=== PATIENT | female | born 1960 | race Caucasian/White ===

== ENCOUNTER → 2017-08-14 | Outpatient (CLI) | payer MEDICARE, OTHER ==
--- NOTE | 2017-08-14 17:03 | CT ---
EXAMINATION TYPE: CT chest w con DATE OF EXAM: 08/14/2017 COMPARISON: NONE HISTORY: Patient complains of chronic cough and "lung pain." CT DLP: 894.7 mGycm Automated exposure control for dose reduction was used. CONTRAST: CT scan of the chest is performed with IV Contrast, patient injected with 100 mL of Omnipaque 300. FINDINGS: The lungs are clear of infiltrate. There is no pleural effusion. There is small linear density at the right posterior lung base consistent with subsegmental atelectasis. Heart size is normal. There are no hilar masses. There is no mediastinal adenopathy. There is no evidence of aortic aneurysm or disse ction. There is some spurring in the thoracic spine. IMPRESSION: Minimal scarring or subsegmental atelectasis at the right lung base. Otherwise negative exam.
== END | disposition home or self-care (01) ==
LOC: RADCTMAIN 16:09
PROVIDERS: ATTEND Family Medicine
DX: R05 Cough (principal)
CPT/HCPCS: 71260; Q9967

== ENCOUNTER → 2017-08-29 | Outpatient (CLI) | payer MEDICARE, OTHER ==
--- NOTE | 2017-08-29 10:41 | FL ---
EXAMINATION TYPE: FL UGI air w small bowel DATE OF EXAM: 08/29/2017 COMPARISON: NONE HISTORY: Left-sided abdominal pain TECHNIQUE: A double contrast UGI study is performed with small bowel follow through utilizing 2 neelima tim and 32 seconds of fluoroscopy time with 59 images saved FINDINGS: Player Piano Technician image of the abdomen shows no gross abnormality. The esophagus shows normal motility and emptying into the stomach. Small hiatal hernia is present. No stricture is seen. The stomach shows normal distensibility, peristalsis, and mucosal folds. No evidence of any mass or ulcer disease. No significant gastroesophageal reflux was seen during real time performance of this study, however intraesophageal reflux was noted with delayed emptying into the stomach in the gravity independent portion of the examination without tertiary contractions. The duodenal bulb and sweep are unremarkable. The small bowel study shows normal transit to the colon in less than 30 minutes. There is normal muc osal fold pattern throughout the small bowel. There is no evidence of any stricture. The terminal il eum is unremarkable. IMPRESSION: 1. Small hiatal hernia. 2. Moderate intraesophageal reflux during the gravity independent portion of the examination as well as delayed propulsion in the supine position. 3. Rapid transit time through small bowel into the large bowel. 4. Evaluation for filling defect within the cecum is limited as stool is present.
== END | disposition home or self-care (01) ==
LOC: RADFLMAIN 08:18
PROVIDERS: ATTEND Family Medicine
DX: K44.9 Diaphragmatic hernia without obstruction or gangrene (principal); K21.9 Gastro-esophageal reflux disease without esophagitis; R13.10 Dysphagia, unspecified
CPT/HCPCS: 74249

== ENCOUNTER → 2017-12-16 | Outpatient (CLI) | payer MEDICARE, OTHER ==
[2017-12-16 14:57] VITALS: BP 153/74; PULSE 96; RESP 16; TEMP 97.7; BMI 63.0
--- NOTE | 2017-12-16 15:17 | P.HPBAR ---
Bariatric H&P - History & Physicial H&P Date: 12/16/17 History & Physicial: Visit/CC: Initial Vist Patient initial contact: Initial weight: 127.488 kg Initial weight in pounds: 281.00 Height: 4 ft 8 in Initial BMI: 63.0 Last weight: Current weight: 127.488 kg Current weight in pounds: 281.00 Current BMI: 63.0 [place] body weight (based on NIH guidelines): 36.287 kg Excess body weight loss: 0.0% The patient is a 57 year-old F who presents for Bariatric Assessment. The patient presents today for new patient consultation for sleeve gastrectomy. She 's had lifetime process morbid obesity. Her BMI 63. Patient developed severe comorbidities related to morbid obesity. She has a known hiatal hernia and significant GERD. 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 Patient will be scheduled see psychology for a bariatric review. She'll also see Dr. Hang Casiano for medical clearance. She' ll follow-up in one month. Bariatric Checklist Checklist: Plan: Checklist: EGD: 1. Hiatal hernia: 2. H. Pylori: HgbA1c: Vitamin D: Smoking: Never smoker Primary care physician referral: Psychiatry clearance: Cardiology clearance: Sleep study: Diet journal: VTE risk score: VTE risk level: Rehab needs at discharge:
[2017-12-16 15:50] LABS: HCT 45.3 % (34.0-46.0); HGB 15.1 gm/dL (11.4-16.0); MCH 31.6 pg (25.0-35.0); MCHC 33.2 g/dL (31.0-37.0); MCV 95.2 fL (80.0-100.0); Mean Platelet Volume 6.5; Platelet Count 263 k/uL (150-450); RBC 4.76 m/uL (3.80-5.40); RDW 12.6 % (11.5-15.5); WBC 8.6 k/uL (3.8-10.6)
[2017-12-16 16:07] LABS: ALT 55 U/L (9-52); AST 70 U/L (14-36); Albumin 4.2 g/dL (3.5-5.0); Alkaline Phosphatase 89 U/L (38-126); Anion Gap 5 mmol/L; Blood Urea Nitrogen 19 mg/dL (7-17); Calcium 9.6 mg/dL (8.4-10.2); Carbon Dioxide 30 mmol/L (22-30); Chloride 104 mmol/L (98-107); Cholesterol 154 mg/dL (<200); Glucose 82 mg/dL (74-99); HDL Cholesterol 45 mg/dL (40-60); LDL Cholesterol,Calculated 77 mg/dL (0-99); Potassium 4.6 mmol/L (3.5-5.1); Sodium 139 mmol/L (137-145); Total Bilirubin 0.3 mg/dL (0.2-1.3); Total Protein 7.2 g/dL (6.3-8.2); Triglycerides 161 mg/dL (<150)
[2017-12-16 19:52] LABS: Hemoglobin A1C 5.8 % (4.0-6.0)
[2017-12-17 01:14] LABS: Vitamin D 25 Hydroxy 54.2 ng/mL (30.0-100.0)
== END | disposition home or self-care (01) ==
LOC: BARWHC3 14:44
PROVIDERS: ATTEND Surgery
DX: E66.01 Morbid (severe) obesity due to excess calories (principal); G43.909 Migraine, unspecified, not intractable, without status migrainosus; K44.9 Diaphragmatic hernia without obstruction or gangrene; K21.9 Gastro-esophageal reflux disease without esophagitis; J45.909 Unspecified asthma, uncomplicated; J44.9 Chronic obstructive pulmonary disease, unspecified; E78.5 Hyperlipidemia, unspecified; M06.9 Rheumatoid arthritis, unspecified; E07.9 Disorder of thyroid, unspecified; G25.81 Restless legs syndrome; Z79.899 Other long term (current) drug therapy; Z68.44 Body mass index [BMI] 60.0-69.9, adult; Z90.710 Acquired absence of both cervix and uterus; Z98.890 Other specified postprocedural states
CPT/HCPCS: 80061; 80053; 82607; 84443; 85027; 82306; 83036; 93005; 36415; G0463; 99201

== ENCOUNTER → 2018-05-26 | Outpatient (CLI) | payer MEDICARE, OTHER ==
--- NOTE | 2018-05-26 11:45 | MR ---
MRI CERVICAL SPINE: CLINICAL HISTORY: Cervical cyst (N88.8 per order). Symptoms of headache per patient. TECHNIQUE: Multiplanar, multisequence imaging of the cervical spine is performed without and with IV contrast, 12.5 cc of gadolinium was given intravenously. COMPARISON: None. FINDINGS: Coronal images show levoconvex scoliosis centered near cervicothoracic junction. Motion art ifact degradation is seen making evaluation suboptimal. Sagittal images of the cervical spine show r low-lying cerebellar tonsils estimated 6 mm inferior descent into foramen magnum. The cervical and u pper thoracic spinal cord shows prominent cervical canal or syrinx beginning just below foramen magnu m extending into upper thoracic spine most prominent to superior T2 level with likely some additional is contiguous involvement below this. Some reversal of normal cervical curvature is seen on sagittal images. There is mild to moderate disc space narrowing C5-C6 level otherwise the vertebral body and intravertebral disk heights are normal. Mild multilevel anterior spurring mid cervical spine is prese nt. No suspicious enhancement is identified. Posterior disc herniation C5-C6 level as seen on sagitta l image 8. Axial images show syrinx beginning on axial image 45. Axial images at C2-C3 level otherwise are withi n normal limits. Axial images at C3-C4 level show broad-based posterior disc protrusion mildly effacing anterior theca l sac and causing mild left greater than right bilateral neural foraminal narrowing with some uncover tebral facet arthropathy present. Axial images at C4-C5 level are felt to appear within normal limits. Axial images at C5-C6 level show broad-based central disc protrusion effacing anterior thecal sac wit h uncovertebral facet degenerative changes causing moderate right-sided neural foraminal narrowing. L eft-sided neural foramen is patent. No significant change from prior. Axial images at C6-C7 and C7-T1 levels are felt to appear within normal limits. 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 There is associated lo ng segment syrinx. There is loss of normal cervical curvature with multilevel degenerative changes as detailed above.
== END | disposition home or self-care (01) ==
LOC: RADMRIMAIN 10:23
PROVIDERS: ATTEND Family Medicine
DX: M47.812 Spondylosis without myelopathy or radiculopathy, cervical region (principal); M43.8X2 Other specified deforming dorsopathies, cervical region
CPT/HCPCS: 72156; A9581

== ENCOUNTER → 2018-06-27 | Outpatient (CLI) | payer MEDICARE, OTHER ==
--- NOTE | 2018-06-27 10:58 | US ---
EXAMINATION TYPE: US venous doppler duplex LE LT DATE OF EXAM: 06/27/2018 10:42 AM COMPARISON: NONE CLINICAL HISTORY: R22.42 SWELLING OF LOWER LIMB. SIDE PERFORMED: Left TECHNIQUE: The lower extremity deep venous system is examined utilizing real time linear array sonog carla with graded compression, doppler sonography and color-flow sonography. FINDINGS: VESSELS IMAGED: External Iliac Vein (EIV) Common Femoral Vein Deep Femoral Vein Greater Saphenous Vein * Femoral Vein Popliteal Vein Proximal Calf Veins (* superficial vessels) Housing Inspector notes: Limited exam due to patient body habitus and edema. Left Leg: Negative for DVT IMPRESSION: Some technical limitations due to body habitus and edema. No evidence for DVT within the left lower e xtremity imaged from the groin to the upper calf.
== END | disposition home or self-care (01) ==
LOC: RADUSWWP 10:13
PROVIDERS: ATTEND Family Medicine
DX: R60.0 Localized edema (principal)

== ENCOUNTER → 2018-07-17 | Outpatient (CLI) | payer MEDICARE, OTHER ==
--- NOTE | 2018-07-17 12:41 | CT ---
EXAMINATION TYPE: CT chest w con DATE OF EXAM: 07/17/2018 COMPARISON: 08/14/2017 HISTORY: 58-year-old female dyspnea, CHF and trouble breathing TECHNIQUE: Contiguous axial scanning of the chest after the administration of 100 mL of Isovue 300. Coronal/sagittal reconstructions performed. CT DLP: 772mGycm. Automatic exposure control utilized for a dose reduction. FINDINGS: Some benign-appearing round calcifications anterior left breast likely oil cysts. Heart is upper limits of normal in size. No pericardial effusion. Aorta normal caliber with conventional branching anatomy. Normal caliber to the main right and left pulmonary arteries. No consolidation or pleural effusion. Patient is of very large body habitus Tiny hiatal hernia noted. Visualized upper abdomen shows no gross abnormality. Bones: Mild endplate spondylosis lower thoracic spine. IMPRESSION: 1. Normal heart size. No specific findings of CHF. 2. Large body habitus; consider possibility of secondary restrictive pulmonary function. 3. Tiny hiatal hernia.
--- NOTE | 2018-07-18 08:57 | ECHOF ---
Referral Reason:R06.0 Dyspnea, I50.30 Congestive heart failure MEASUREMENTS -------- HEIGHT: 137.2 cm WEIGHT: 128.8 kg BP: RVIDd: 2.5 cm (< 3.3) IVSd: 1.2 cm (0.6 - 1.1) LVIDd: 4.5 cm (3.9 - 5.3) LVPWd: 0.7 cm (0.6 - 1.1) IVSs: 1.4 cm LVIDs: 4.0 cm LVPWs: 0.9 cm LA Diam: 3.5 cm (2.7 - 3.8) Ao Diam: 3.4 cm (2.0 - 3.7) AV Cusp: 1.8 cm (1.5 - 2.6) LA Diam: 4.1 cm (2.7 - 3.8) MV EXCURSION: 14.230 mm (> 18.000) MV EF SLOPE: 70 mm/s (70 - 150) EPSS: 0.7 cm MV E Stefan: 0.64 m/s MV DecT: 239 ms MV A Stefan: 0.70 m/s MV E/A Ratio: 0.92 RAP: 5.00 mmHg RVSP: 10.49 mmHg FINDINGS -------- Sinus rhythm. This was a technically difficult study with suboptimal views. Morbid Obesity The left ventricular size is normal. There is mild concentric left ventricular hypertrophy. Overa ll left ventricular systolic function is normal with, an EF between 55 - 60 %. The right ventricle is normal in size. The left atrial size is normal. The right atrial size is normal. The aortic valve was not well visualized. There is trace mitral regurgitation. The tricuspid valve was not well visualized. Mild tricuspid regurgitation present. There is no ev idence of pulmonary hypertension. The right ventricular systolic pressure, as measured by Doppler, is 10.49mmHg. The pulmonic valve was not well visualized. The aortic root size is normal. There is a trivial pericardial effusion present. CONCLUSIONS -------- 1. Sinus rhythm. 2. This was a technically difficult study with suboptimal views. 3. Morbid Obesity 4. The left ventricular size is normal. 5. There is mild concentric left ventricular hypertrophy. 6. Overall left ventricular systolic function is normal with, an EF between 55 - 60 %. 7. The left atrial size is normal. 8. The aortic valve was not well visualized. 9. There is trace mitral regurgitation. 10. The tricuspid valve was not well visualized. 11. Mild tricuspid regurgitation present. 12. There is no evidence of pulmonary hypertension. 13. The pulmonic valve was not well visualized. 14. The aortic root size is normal. 15. There is a trivial pericardial effusion present. ROCK CLIMBING INSTRUCTOR: Savannah Barksdale RDCS
== END | disposition home or self-care (01) ==
LOC: RADCTMAIN 11:36
PROVIDERS: ATTEND Family Medicine
DX: I07.1 Rheumatic tricuspid insufficiency (principal); R06.00 Dyspnea, unspecified; E66.01 Morbid (severe) obesity due to excess calories
CPT/HCPCS: 93306; 71260; Q9967

== ENCOUNTER 2018-10-22 07:18 | Emergency (ER) | payer MEDICARE, OTHER ==
[2018-10-22] MEDS ORDERED: SODIUM CHLORIDE 0.9% 500 ML 500 ML IV ONE (07:34)
--- NOTE | 2018-10-22 07:37 | ED ---
General Adult HPI - General Chief complaint: Headache Stated complaint: HYPERGLYCEMIA Time Seen by Provider: 10/22/18 07:28 Source: patient, RN notes reviewed, old records reviewed Mode of arrival: EMS Limitations: no limitations - History of Present Illness Initial comments: 58-year-old female presents with chief complaint of elevated blood sugar. Patient states on her glucometer at home she had a blood sugar of 300. She is recently diagnosed with type 2 diabetes. She has been prescribed a medication by her primary care physician but is uncertain what this medication is and has not yet taken it. She was transported by EMS and EMS reported blood sugar 1: 15. Patient has only other complaint is some mild lightheadedness. Denies chest pain or dyspnea. Denies abdominal pain. Denies nausea vomiting or diarrhea. Denies fever or chills. She has been eating and drinking normally. - Related Data Home Medications Medication Instructions Recorded Confirmed Albuterol Inhaler [Ventolin 1 - 2 puff INHALATION RT-Q6H PRN 06/04/15 10/22/18 Inhaler] Budesonide-Formot 160-4.5 Mcg 2 puff INHALATION RT-BID 06/04/15 10/22/18 [Symbicort 160-4.5 Mcg Inhaler] Levothyroxine Sodium [Levoxyl] 100 mcg PO DAILY 06/04/15 10/22/18 Loratadine [Claritin] 10 mg PO DAILY 06/04/15 10/22/18 Mirtazapine [Remeron] 15 mg PO HS 06/04/15 10/22/18 Montelukast Sodium [Singulair] 10 mg PO HS 06/04/15 10/22/18 Nystatin [Nystop] 1 applic TOPICAL BID 06/04/15 10/22/18 PARoxetine HCL [Paxil] 20 mg PO DAILY 06/04/15 10/22/18 Potassium Chloride ER [K-Dur 10] 10 meq PO DAILY 06/04/15 10/22/18 Terbutaline Sulfate 2.5 mg PO TID 06/04/15 10/22/18 Topiramate [Topamax] 50 mg PO HS 06/04/15 10/22/18 rOPINIRole HCL [Requip] 1 mg PO HS 06/04/15 10/22/18 Atenolol [Tenormin] 25 mg PO DAILY 10/23/17 10/22/18 Omeprazole 40 mg PO DAILY 10/23/17 10/22/18 amLODIPine BESYLATE [Norvasc] 5 mg PO DAILY 10/23/17 10/22/18 Cholecalciferol (Vitamin D3) 2,000 unit PO DAILY 10/22/18 10/22/18 [Vitamin D3] Docusate [Colace] 100 mg PO BID 10/22/18 10/22/18 Furosemide [Lasix] 20 mg PO DAILY 10/22/18 10/22/18 Gabapentin [Neurontin] 300 mg PO BID 10/22/18 10/22/18 Rosuvastatin [Crestor] 10 mg PO HS 10/22/18 10/22/18 buPROPion HCL [Wellbutrin SR] 150 mg PO BID 10/22/18 10/22/18 busPIRone HCl [Buspar] 10 mg PO DAILY 10/22/18 10/22/18 hydrALAZINE HCL [Apresoline] 50 mg PO BID 10/22/18 10/22/18 Allergies Allergy/AdvReac Type Severity Reaction Status Date / Time Penicillins Allergy Rash/Hives Verified 10/22/18 08:09 Review of Systems ROS Statement: Those systems with pertinent positive or pertinent negative responses have been documented in the HPI. ROS Other: All systems not noted in ROS Statement are negative. 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 Absent: tenderness, meningismus Respiratory exam: Present: normal lung sounds bilaterally. Absent: respiratory distress Cardiovascular Exam: Present: regular rate, normal rhythm GI/Abdominal exam: Present: soft. Absent: distended, tenderness Extremities exam: Present: normal inspection, full ROM Neurological exam: Present: alert, oriented X3, CN II-XII intact. Absent: motor sensory deficit Psychiatric exam: Present: normal affect, normal mood Skin exam: Present: warm, dry, intact. Absent: cyanosis, diaphoretic Course Vital Signs 10/22/18 10/22/18 10/22/18 07:24 07:25 08:00 Temperature 97.9 F Pulse Rate 78 72 Respiratory 18 16 Rate Blood Pressure 132/67 132/67 O2 Sat by Pulse 96 97 97 Oximetry Medical Decision Making - Medical Decision Making 58-year-old female presenting with hypoglycemia. Blood sugar at home was 300. EMS reports normal blood sugar, glucometer the emergency department reads 95. Patient's blood work including CBC and CMP are obtained and are within normal limits including a blood sugar of 104. Patient will continue diabetic diet at home. She will follow-up with her primary care physician for reevaluation. She will also have glucometer check for accuracy at home. - Lab Data Result diagrams: 10/22/18 07:44 10/22/18 07:44 Lab Results 10/22/18 10/22/18 Range/Units 07:44 07:44 WBC 7.0 (3.8-10.6) k/uL RBC 4.78 (3.80-5.40) m/uL Hgb 14.6 (11.4-16.0) gm/dL Hct 45.2 (34.0-46.0) % MCV 94.5 (80.0-100.0) fL MCH 30.6 (25.0-35.0) pg MCHC 32.4 (31.0-37.0) g/dL RDW 13.6 (11.5-15.5) % Plt Count 280 (150-450) k/uL Neutrophils % 63 % Lymphocytes % 26 % Monocytes % 5 % Eosinophils % 3 % Basophils % 1 % Neutrophils # 4.4 (1.3-7.7) k/uL Lymphocytes # 1.8 (1.0-4.8) k/uL Monocytes # 0.4 (0-1.0) k/uL Eosinophils # 0.2 (0-0.7) k/uL Basophils # 0.1 (0-0.2) k/uL Sodium 144 (137-145) mmol/L Potassium 4.6 (3.5-5.1) mmol/L Chloride 106 (98-107) mmol/L Carbon Dioxide 30 (22-30) mmol/L Anion Gap 8 mmol/L BUN 20 H (7-17) mg/dL Creatinine 0.84 (0.52-1.04) mg/dL Est GFR (CKD-EPI)AfAm 89 (>60 ml/min/1.73 sqM) Est GFR (CKD-EPI)NonAf 77 (>60 ml/min/1.73 sqM) Glucose 104 H (74-99) mg/dL Calcium 8.8 (8.4-10.2) mg/dL Total Bilirubin 0.4 (0.2-1.3) mg/dL AST 36 (14-36) U/L ALT 36 (9-52) U/L Alkaline Phosphatase 101 (38-126) U/L Total Protein 7.2 (6.3-8.2) g/dL Albumin 4.0 (3.5-5.0) g/dL Disposition Clinical Impression: Hyperglycemia Disposition: HOME SELF-CARE Condition: Good Instructions: Type 2 Diabetes in the Older Adult (ED) Is patient prescribed a controlled substance at d/c from ED?: No Referrals: Hang Young MD [Primary Care Provider] - 1-2 days
[2018-10-22 08:35] LABS: Basophils # (A) 0.1 k/uL (0-0.2); Basophils % (A) 1 %; Eosinophils # (A) 0.2 k/uL (0-0.7); Eosinophils % (A) 3 %; HCT 45.2 % (34.0-46.0); HGB 14.6 gm/dL (11.4-16.0); Lymphocytes # (A) 1.8 k/uL (1.0-4.8); Lymphocytes % (A) 26 %; MCH 30.6 pg (25.0-35.0); MCHC 32.4 g/dL (31.0-37.0); MCV 94.5 fL (80.0-100.0); Mean Platelet Volume 6.5; Monocytes # (A) 0.4 k/uL (0-1.0); Monocytes % (A) 5 %; Neutrophils # (A) 4.4 k/uL (1.3-7.7); Neutrophils % (A) 63 %; Platelet Count 280 k/uL (150-450); RBC 4.78 m/uL (3.80-5.40); RDW 13.6 % (11.5-15.5)
[2018-10-22 08:45] LABS: Calcium 8.8 mg/dL (8.4-10.2); Potassium 4.6 mmol/L (3.5-5.1); Total Bilirubin 0.4 mg/dL (0.2-1.3); Total Protein 7.2 g/dL (6.3-8.2)
[2018-10-22 09:07] VITALS: BP 133/75; PULSE 75; RESP 19; TEMP 97.7
[2018-10-22 09:22] LABS: Glucose,Whole Blood 95 mg/dL (75-99)
== END 2018-10-22 09:04 | disposition home or self-care (01) ==
LOC: EC 07:18
DX: E11.65 Type 2 diabetes mellitus with hyperglycemia (principal); J44.9 Chronic obstructive pulmonary disease, unspecified; E78.5 Hyperlipidemia, unspecified; I10 Essential (primary) hypertension; M06.9 Rheumatoid arthritis, unspecified; E03.9 Hypothyroidism, unspecified; G25.81 Restless legs syndrome; F32.9 Major depressive disorder, single episode, unspecified; F41.9 Anxiety disorder, unspecified; Z96.653 Presence of artificial knee joint, bilateral; Z79.51 Long term (current) use of inhaled steroids; Z79.899 Other long term (current) drug therapy; Z88.0 Allergy status to penicillin
CPT/HCPCS: 36415; 80053; 85025; 96360; 99285

== ENCOUNTER → 2018-10-28 | Outpatient (CLI) | payer MEDICARE, OTHER ==
--- NOTE | 2018-10-30 10:48 | MM ---
Reason for exam: screening (asymptomatic). Last mammogram was performed 3 years and 4 months ago. History: Patient is postmenopausal and is nulliparous. Physical Findings: A clinical breast exam by your physician is recommended on an annual basis and results should be correlated with mammographic findings. MG 3D Screening Mammo W/Cad Bilateral CC and MLO view(s) were taken. Prior study comparison: June 30, 2015, bilateral MG screening mammo w CAD. March 18, 2013, bilateral digital screening mammo w/CAD. There are scattered fibroglandular densities. Benign calcifications in the left breast. No suspicious abnormality. No significant changes when compared with prior studies. ASSESSMENT: Benign, BI-RAD 2 RECOMMENDATION: Routine screening mammogram of both breasts in 1 year.
== END | disposition home or self-care (01) ==
LOC: RADMAMWWP 07:33
PROVIDERS: ATTEND Family Medicine
DX: Z12.31 Encounter for screening mammogram for malignant neoplasm of breast (principal)
CPT/HCPCS: 77063; 77067

== ENCOUNTER → 2019-05-27 | Outpatient (CLI) | payer MEDICARE, OTHER ==
[~2019-05-27] MED LIST: REGADENOSON 0.4 MG/5 ML SYRINGE IV ONE
--- NOTE | 2019-05-27 10:32 | P.STRESS ---
- Stress Test Note Stress Test Results/Findings: Exam Performed: NM stress lexiscan cardiolite Exam Date: 05/27/19 Reason for Exam: CHF Height: 4 ft 8 in Weight: 118.388 kg Protocol: LEXISCAN CARDIOLITE Stage: N/A Duration of Exercise: 5:00 Resting Heart Rate: 69 Resting Blood Pressure: 109/53 Maximum Achieved Heart Rate: 87 Maximum Achieved Blood Pressure: 109/53 85% PMHR: 137 100% PMHR: 161 METS: N/A Technologist Comment: Stress Test Results/Findings: This is a 59-year-old female with history of hypertension, diabetes, hypercholesterolemia and family history of ischemic heart disease being evaluated for cardiac status and symptoms of shortness of breath. Stress data: Baseline EKG showed sinus rhythm with normal TX interval, QRS d uration. Blood pressure at rest is 109/53 with pulse rate of 69. History and also Lexiscan was infused EKGs taken during and after exercise did not reveal any significant changes to suggest ischemia. New Final impression: #1. Negative Lexiscan stress test #2. Report on the nuclear images to be given by the radiologist
--- NOTE | 2019-05-27 10:55 | NM ---
EXAMINATION TYPE: NM stress lexiscan cardiolite DATE OF EXAM: 05/27/2019 COMPARISON: NONE HISTORY: History of hypertension, diabetes, asthma, and hypercholesterolemia presents with CHF per or yovani. TECHNIQUE: After the intravenous administration of 10.36 mCi Tc 99m Sestamibi - Cardiolite resting S PECT images acquired 45 minutes post injection. The patient received 0.4mg Lexiscan, 24.9 mCi Tc 99m Sestamibi - Stress images obtained [address] injection FINDINGS: Review of stress and rest SPECT images demonstrates some diminished color intensity on stress versus rest images involving the lateral left ventricular wall seen best on short axis views and which acute ischemia cannot be excluded. Gated analysis shows satisfactory wall motion with an estimated left v entricular ejection fraction of 53 %. IMPRESSION: Cannot exclude some acute ischemia lateral segment left ventricular wall. Need to further investigate by direct catheter angiogram should be based on clinical and EKG correlation.
--- NOTE | 2019-05-28 13:26 | EST ---
Stress Test Results/Findings: Exam Performed: NM stress lexiscan cardiolite Exam Date: 05/27/19 Reason for Exam: CHF Height: 4 ft 8 in Weight: 118.388 kg Protocol: LEXISCAN CARDIOLITE Stage: N/A Duration of Exercise: 5:00 Resting Heart Rate: 69 Resting Blood Pressure: 109/53 Maximum Achieved Heart Rate: 87 Maximum Achieved Blood Pressure: 109/53 85% PMHR: 137 100% PMHR: 161 METS: N/A Technologist Comment: Stress Test Results/Findings: This is a 59-year-old female with history of hypertension, diabetes, hypercholesterolemia and family history of ischemic heart disease being evaluated for cardiac status and symptoms of shortness of breath. Stress data: Baseline EKG showed sinus rhythm with normal PA interval, QRS duration. Blood pressure at rest is 109/53 with pulse rate of 69. History and also Lexiscan was infused EKGs taken during and after exercise did not reveal any significant changes to suggest ischemia. New Final impression: #1. Negative Lexiscan stress test #2. Report on the nuclear images to be given by the radiologist NATI
== END | disposition home or self-care (01) ==
LOC: RADNMMAIN 07:00
PROVIDERS: ATTEND Family Medicine
DX: I50.30 Unspecified diastolic (congestive) heart failure (principal); I50.84 End stage heart failure
CPT/HCPCS: 93017; 78452; A9500; J2785

== ENCOUNTER → 2019-06-25 | Outpatient (CLI) | payer MEDICARE, OTHER ==
--- NOTE | 2019-06-26 09:59 | ECHOF ---
Referral Reason:I50.30 CHF MEASUREMENTS -------- HEIGHT: 147.3 cm WEIGHT: 118.4 kg BP: RVIDd: 1.7 cm (< 3.3) IVSd: 0.8 cm (0.6 - 1.1) LVIDd: 3.6 cm (3.9 - 5.3) LVPWd: 1.2 cm (0.6 - 1.1) IVSs: 1.4 cm LVIDs: 2.4 cm LVPWs: 1.5 cm Ao Diam: 2.8 cm (2.0 - 3.7) AV Cusp: 1.7 cm (1.5 - 2.6) LA Diam: 2.5 cm (2.7 - 3.8) MV E Stefan: 0.54 m/s MV DecT: 209 ms MV A Stefan: 0.45 m/s MV E/A Ratio: 1.19 RAP: 5.00 mmHg RVSP: 8.59 mmHg FINDINGS -------- Sinus rhythm. This was a technically difficult study with suboptimal views. Limited Study due to poor image quali ty. The left ventricular size is normal. There is mild concentric left ventricular hypertrophy. Overa ll left ventricular systolic function is normal with, an EF between 55 - 60 %. The RV was not well visualized. The left atrium was not well visualized. The right atrium was not well visualized. xx ml of Lumason was utilized for enhancement of images. The aortic valve was not well visualized. The mitral valve was not well visualized. The tricuspid valve was not well visualized. The pulmonic valve was not well visualized. CONCLUSIONS -------- 1. Sinus rhythm. 2. This was a technically difficult study with suboptimal views. 3. Limited Study due to poor image qulity. 4. The left ventricular size is normal. 5. There is mild concentric left ventricular hypertrophy. 6. Overall left ventricular systolic function is normal with, an EF between 55 - 60 %. 7. The RV was not well visualized. 8. The left atrium was not well visualized. 9. The right atrium was not well visualized. 10. xx ml of Lumason was utilized for enhancement of images. 11. The aortic valve was not well visualized. 12. The mitral valve was not well visualized. 13. The tricuspid valve was not well visualized. 14. The pulmonic valve was not well visualized. ACCOUNTANT: Neha Beatty RDCS
== END | disposition home or self-care (01) ==
LOC: RADECHMAIN 11:50
PROVIDERS: ATTEND Family Medicine
DX: I51.7 Cardiomegaly (principal); I50.30 Unspecified diastolic (congestive) heart failure
CPT/HCPCS: C8929; Q9950; 93306

== ENCOUNTER → 2019-08-11 | Outpatient (CLI) | payer MEDICARE, OTHER ==
--- NOTE | 2019-08-11 10:34 | MR ---
EXAMINATION TYPE: MR cervical spine wo/w con DATE OF EXAM: 08/11/2019 COMPARISON: 05/26/2018 HISTORY: Syrinx TECHNIQUE: Multiplanar, multisequence images of the cervical spine were acquired utilizing 11 mL intravenous Victor M avist contrast. Diffusion weighted imaging was performed. Exam limited by motion artifact. Findings suggest possible previous decompression surgery. Partially empty sella turcica noted. Low-ly ing cerebellar tonsils appears again noted. C2-C3: No disc herniation or canal stenosis. Neural foramina patent. C3-C4: Degenerative disc disease with posterior disc bulging which is stable. Uncovertebral joint hyp ertrophy seen. Neural foramina patent. No Canal stenosis. C4-C5: Uncovertebral joint hypertrophy. No foraminal encroachment or canal stenosis. No disc herniati on. Prominent anterior hypertrophic spurs are noted at this level. C5-C6: Degenerative disc disease with broad-based disc bulging and posterior spondylosis. Uncovertebr al joint hypertrophy noted with mild right-sided foraminal encroachment. No Canal stenosis. Prominent hypertrophic spurs are noted anteriorly at this level. C6-C7: Degenerative disc disease with no canal stenosis, focal herniation or foraminal encroachment. C7-T1: No evidence for degenerative disc disease. No disc bulge/herniation or protrusion. No Canal stenosis. Foramina are patent bilaterally. There is artifact near the occiput within the posterior soft tissue suggestive of previous surgery po ssible related to decompression surgery. Loss of the normal cervical lordosis noted. Abnormal signal seen within the spinal cord extends from the level of C1 throughout the visualized ce rvical and upper thoracic spinal cord appears stable relative to the prior exam. No pathologic enhanc ement. IMPRESSION: 1. Stable findings suggestive of a cervical spinal cord syrinx. 2. Postsurgical change involving the occiput suggestive of previous decompression surgery possibly fo r Chiari malformation correlate clinically. Cerebellar tonsils remain low-lying in position but stabl e. 3. Stable multilevel degenerative disc disease with most marked findings at C5-C6. Disc bulging C3-4 and C5-C6 is stable from prior exam with no canal stenosis.
== END ==
LOC: RADMRIMAIN 08:39
PROVIDERS: ATTEND Family Medicine
DX: M50.322 Other cervical disc degeneration at C5-C6 level (principal); M50.21 Other cervical disc displacement, high cervical region
CPT/HCPCS: 72156; A9585

== ENCOUNTER 2020-06-30 06:46 | Day surgery (SDC) | payer MEDICARE, OTHER ==
[2020-06-29 10:44] VITALS: BMI 56.0
[~2020-06-30 06:46] MED LIST changes: +LACTATED RINGERS 1,000 ML IV SCH; +ONDANSETRON 4 MG/2 ML VIAL IVP PRN; -REGADENOSON 0.4 MG/5 ML SYRINGE IV ONE
[2020-06-30 07:17] VITALS: RESP 16
[2020-06-30 07:38] VITALS: TEMP 97.1
[2020-06-30 07:40] LABS: Glucose,Whole Blood 91 mg/dL (75-99)
[2020-06-30] MEDS ORDERED: LIDOCAINE 1% INJ 10MG/ML (20 ML MDV) ONE (08:11)
[2020-06-30] MEDS ORDERED: PROPOFOL 10 MG/ML 20 ML VIAL IV ONE (08:11)
--- NOTE | 2020-06-30 08:13 | P.GSHP ---
History of Present Illness H&P Date: 06/30/20 Chief Complaint: GERD This a 6-year-old female presents today for EGD. She had issues with GERD. Past Medical History Past Medical History: Asthma, COPD, Diabetes Mellitus, GERD/Reflux, Hyperlipidemia, Hypertension, Osteoarthritis (OA), Rheumatoid Arthritis (RA), Sleep Apnea/CPAP/BIPAP, Thyroid Disorder Additional Past Medical History / Comment(s): hypothyroidism, restless leg syndrome, migraine headaches (Neurontin Rx prescribed for these) , HIATAL HERNIA, HAS SPOT SPOT IN BACK OF HEAD FROM PIECE OF SKULL BEING REMOVED. History of Any Multi-Drug Resistant Organisms: None Reported Past Surgical History: Adenoidectomy, Hysterectomy, Joint Replacement, Orthopedic Surgery, Tonsillectomy Additional Past Surgical History / Comment(s): bilateral eye surgery to correct lazy eyes, munira knee replacement, munira hand and Left leg surgery, COLONOSOPY, BACK OF SKULL REMOVED 2 YEARS AGO TO RELIEVE PRESSURE FROM CYST ON SPINAL CORD. Past Anesthesia/Blood Transfusion Reactions: No Reported Reaction Smoking Status: Never smoker - Past Family History Sister(s) Family Medical History: Deep Vein Thrombosis (DVT) Additional Family Medical History / Comment(s): SISTER HAD BLOOD CLOT IN LT ARM Medications and Allergies Home Medications Medication Instructions Recorded Confirmed Type Albuterol Inhaler (Mhu) [Ventolin 1 - 2 puff INHALATION RT-Q6H PRN 06/04/15 06/30/20 History Inhaler] Budesonide-Formot 160-4.5 Mcg 2 puff INHALATION RT-BID 06/04/15 06/30/20 History [Symbicort 160-4.5 Mcg Inhaler] Levothyroxine Sodium [Levoxyl] 100 mcg PO DAILY 06/04/15 06/30/20 History Loratadine [Claritin] 10 mg PO DAILY 06/04/15 06/30/20 History Mirtazapine [Remeron] 15 mg PO HS 06/04/15 06/30/20 History Montelukast Sodium [Singulair] 10 mg PO HS 06/04/15 06/30/20 History PARoxetine HCL [Paxil] 20 mg PO DAILY 06/04/15 06/30/20 History Potassium Chloride ER [K-Dur 10] 10 meq PO DAILY 06/04/15 06/30/20 History Topiramate [Topamax] 50 mg PO HS 06/04/15 06/30/20 History rOPINIRole HCL [Requip] 1 mg PO HS 06/04/15 06/30/20 History Omeprazole 40 mg PO DAILY 10/23/17 06/30/20 History amLODIPine BESYLATE [Norvasc] 5 mg PO DAILY 10/23/17 06/30/20 History atenoloL [Tenormin] 25 mg PO DAILY 10/23/17 06/30/20 History Cholecalciferol (Vitamin D3) 2,000 unit PO DAILY 10/22/18 06/30/20 History [Vitamin D3] Docusate [Colace] 100 mg PO BID 10/22/18 06/30/20 History Furosemide [Lasix] 20 mg PO DAILY 10/22/18 06/30/20 History Gabapentin [Neurontin] 300 mg PO BID 10/22/18 06/30/20 History Rosuvastatin [Crestor] 10 mg PO HS 10/22/18 06/30/20 History buPROPion HCL [Wellbutrin SR] 150 mg PO BID 10/22/18 06/30/20 History busPIRone HCl [Buspar] 10 mg PO DAILY 10/22/18 06/30/20 History hydrALAZINE HCL [Apresoline] 50 mg PO BID 10/22/18 06/30/20 History Dapagliflozin Propanediol [Farxiga] 5 mg PO DAILY 01/15/20 06/30/20 History Diclofenac Sodium [Voltaren] 50 mg PO TID 01/15/20 06/30/20 History Rizatriptan Benzoate [Rizatriptan] 10 mg PO DAILY PRN 01/15/20 06/30/20 History Semaglutide [Ozempic] 0.25 mg SQ TU 01/15/20 06/30/20 History Sucralfate [Carafate] 1 gm PO ACHS 06/29/20 06/30/20 History Allergies Allergy/AdvReac Type Severity Reaction Status Date / Time Penicillins Allergy Rash/Hives Verified 06/30/20 07:19 Surgical - Exam Vital Signs Pulse Resp BP Pulse Ox 84 16 123/62 95 06/30/20 07:15 06/30/20 07:15 06/30/20 07:15 06/30/20 07:15 - General well developed, well nourished, no distress - Eyes PERRL - ENT normal pinna - Neck no masses - Respiratory normal expansion - Cardiovascular Rhythm: regular - Abdomen Abdomen: soft, non tender Assessment and Plan Assessment: GERD. We'll perform EGD.
--- NOTE | 2020-06-30 08:23 | P.OP ---
Date of Procedure: 06/30/20 Preoperative Diagnosis: EGD Postoperative Diagnosis: Antral gastritis Procedure(s) Performed: EGD Anesthesia: MAC Surgeon: Kamar Lara Pathology: other (Antrum) Condition: stable Disposition: PACU Description of Procedure: The patient's placed on the endoscopy table in the lateral position. He receiv ed IV sedation. The gastroscope placed oropharynx and passed in the esophagus and stomach. Scope was then placed through the pylorus. The first and second portion of the duodenum appeared normal. Scope was then brought back the antrum this. Mildly inflamed. The scope was retroflexed and remainder of the stomach appeared normal. There was no significant hiatal hernia. The GE junction was at 440 cms. The distal esophagus appeared normal. The proximal esophagus appeared normal. Scope was withdrawn from patient.
[2020-06-30 09:36] VITALS: BP 129/81; PULSE 81
[2020-06-30 09:42] LABS: Glucose,Whole Blood 173 mg/dL (75-99)
== END 2020-06-30 10:15 | disposition home or self-care (01) ==
LOC: ORWHC2ENDO 06:46
PROVIDERS: ATTEND Surgery
DX: K29.50 Unspecified chronic gastritis without bleeding (principal); K21.9 Gastro-esophageal reflux disease without esophagitis; I10 Essential (primary) hypertension; J44.9 Chronic obstructive pulmonary disease, unspecified; E11.9 Type 2 diabetes mellitus without complications; E78.5 Hyperlipidemia, unspecified; M19.90 Unspecified osteoarthritis, unspecified site; M06.9 Rheumatoid arthritis, unspecified; G47.30 Sleep apnea, unspecified; E07.9 Disorder of thyroid, unspecified; E03.9 Hypothyroidism, unspecified; G25.81 Restless legs syndrome; G43.909 Migraine, unspecified, not intractable, without status migrainosus; Z88.0 Allergy status to penicillin; Z79.51 Long term (current) use of inhaled steroids; Z79.84 Long term (current) use of oral hypoglycemic drugs; Z79.1 Long term (current) use of non-steroidal anti-inflammatories (NSAID); Z79.890 Hormone replacement therapy; Z79.899 Other long term (current) drug therapy; Z96.653 Presence of artificial knee joint, bilateral; Z90.710 Acquired absence of both cervix and uterus; Z90.89 Acquired absence of other organs; Z98.890 Other specified postprocedural states; Z82.49 Family history of ischemic heart disease and other diseases of the circulatory system
CPT/HCPCS: 88305; 43239; J2001; J2704

== ENCOUNTER → 2021-04-11 | Outpatient (CLI) | payer MEDICARE, OTHER ==
[~2021-04-11] MED LIST changes: -LACTATED RINGERS 1,000 ML IV SCH; -ONDANSETRON 4 MG/2 ML VIAL IVP PRN; +REGADENOSON 0.4 MG/5 ML SYRINGE IV PRN
--- NOTE | 2021-04-11 11:14 | NM ---
EXAMINATION TYPE: NM stress lexiscan cardiolite DATE OF EXAM: 04/11/2021 COMPARISON: 05/27/2019 HISTORY: R07.2 precordial chest pain TECHNIQUE: After the intravenous administration of 9.5 mCi Tc 99m Sestamibi - Cardiolite resting SPE CT images acquired 45 minutes post injection. The patient received 0.4mg Lexiscan, 24.8 mCi Tc 99m Sestamibi - Stress images obtained [address] injection FINDINGS: Review of stress and rest SPECT images demonstrates small area of reversible decreased perfusion invo lving the lateral wall of the left ventricle may reflect stress-induced ischemia. Fixed decreased per fusion cardiac apex may reflect attenuation artifact. A remote insult. Gated analysis shows normal wa ll motion with an estimated left ventricular ejection fraction of 67 %. IMPRESSION: Stress-induced ischemia lateral wall of the left ventricle is difficult to exclude. Corre late clinically.
--- NOTE | 2021-04-11 18:58 | P.STRESS ---
- Stress Test Note Stress Test Results/Findings: Exam Performed: NM stress lexiscan cardiolite Exam Date: 04/11/21 Reason for Exam: CHEST PAIN Height: 4 ft 8 in Weight: 250 kg Protocol: LEXISCAN Stage: N/A Duration of Exercise: 5 MINUTES Resting Heart Rate: 74 Resting Blood Pressure: 118/67 Maximum Achieved Heart Rate: 93 Maximum Achieved Blood Pressure: 133/61 85% PMHR: 135 100% PMHR: 159 METS: N/A Technologist Comment: Stress Test Results/Findings: Baseline heart rate 74 beats a minute, Baseline blood pressure 118/67 mmHg Baseline twelve-lead EKG shows sinus rhythm with normal ST segments Patient received Lexiscan infusion per protocol No significant change in heart rate blood pressure No ECG abnormalities noted Nuclear Portion of the reported separately
== END | disposition home or self-care (01) ==
LOC: RADNMMAIN 07:37
PROVIDERS: ATTEND Family Medicine
DX: R07.2 Precordial pain (principal)
CPT/HCPCS: 93017; 78452; A9500; J2785

== ENCOUNTER → 2021-06-09 | Outpatient (CLI) | payer MEDICARE, OTHER ==
[2021-06-09 11:59] LABS: HGB 15.5 gm/dL (11.4-16.0); MCV 97.1 fL (80.0-100.0); Platelet Count 310 k/uL (150-450); RBC 4.84 m/uL (3.80-5.40); RDW 12.7 % (11.5-15.5); WBC 10.4 k/uL (3.8-10.6)
[2021-06-09 12:06] LABS: African American GFR (CKD) >90 (>60 ml/min/1.73 sqM); Anion Gap 10 mmol/L; Blood Urea Nitrogen 12 mg/dL (7-17); Carbon Dioxide 25 mmol/L (22-30); Chloride 108 mmol/L (98-107); Non-African American GFR(CKD) >90 (>60 ml/min/1.73 sqM); Potassium 4.6 mmol/L (3.5-5.1); Sodium 143 mmol/L (137-145)
== END | disposition home or self-care (01) ==
LOC: LABPAT 10:53
PROVIDERS: ATTEND Internal Medicine Interventional Cardiology
DX: Z01.812 Encounter for preprocedural laboratory examination (principal); R07.9 Chest pain, unspecified
CPT/HCPCS: 36415; 80051; 82565; 84520; 85027

== ENCOUNTER 2021-06-27 04:46 | Inpatient (IN) | payer MEDICARE, OTHER ==
[2021-06-27] MEDS ORDERED: methylPREDNISolone SOD SUCCI 125 MG/2 ML VIAL IV STA (04:52)
[2021-06-27] MEDS ORDERED: SODIUM CHLORIDE 0.9% 500 ML 500 ML IV STA (04:52)
[2021-06-27] MEDS ORDERED: SODIUM CHLORIDE 0.9% 1,000 ML IV STA (04:52)
[2021-06-27] MEDS ORDERED: IPRATROPIUM-ALBUTEROL 3 ML NEB INHALATION STA (04:52)
--- NOTE | 2021-06-27 05:01 | ED ---
SOB HPI - General Chief Complaint: Shortness of Breath Stated Complaint: PATRICK Time Seen by Provider: 06/27/21 04:52 Source: patient, EMS, RN notes reviewed, old records reviewed Limitations: no limitations - History of Present Illness MD Complaint: shortness of breath, cough, chest pain -: minutes(s) Severity: moderate Severity scale (1-10): 4 Quality: dull Consistency: intermittent Improves With: nothing Worsens With: nothing Context: recent URI, anxiety, recent illness Associated Symptoms: chest pain, cough, sputum production Treatments Prior to Arrival: none - Related Data Home Medications Medication Instructions Recorded Confirmed Albuterol Inhaler (Mhu) [Ventolin 1 - 2 puff INHALATION RT-Q6H PRN 06/04/15 06/09/21 Inhaler] Budesonide-Formot 160-4.5 Mcg 2 puff INHALATION RT-BID 06/04/15 06/09/21 [Symbicort 160-4.5 Mcg Inhaler] Levothyroxine Sodium [Levoxyl] 100 mcg PO DAILY 06/04/15 06/09/21 Loratadine [Claritin] 10 mg PO DAILY 06/04/15 06/09/21 Mirtazapine [Remeron] 15 mg PO HS 06/04/15 06/09/21 Montelukast Sodium [Singulair] 10 mg PO HS 06/04/15 06/09/21 PARoxetine HCL [Paxil] 20 mg PO DAILY 06/04/15 06/09/21 Potassium Chloride ER [K-Dur 10] 10 meq PO DAILY 06/04/15 06/09/21 Topiramate [Topamax] 50 mg PO HS 06/04/15 06/09/21 rOPINIRole HCL [Requip] 1 mg PO HS 06/04/15 06/09/21 Omeprazole 40 mg PO DAILY 10/23/17 06/09/21 amLODIPine BESYLATE [Norvasc] 5 mg PO DAILY 10/23/17 06/09/21 atenoloL [Tenormin] 25 mg PO DAILY 10/23/17 06/09/21 Cholecalciferol (Vitamin D3) 2,000 unit PO DAILY 10/22/18 06/09/21 [Vitamin D3] Docusate [Colace] 100 mg PO BID 10/22/18 06/09/21 Furosemide [Lasix] 20 mg PO DAILY 10/22/18 06/09/21 Gabapentin [Neurontin] 300 mg PO BID 10/22/18 06/09/21 Rosuvastatin [Crestor] 10 mg PO HS 10/22/18 06/09/21 buPROPion HCL [Wellbutrin SR] 150 mg PO BID 10/22/18 06/09/21 busPIRone HCl [Buspar] 10 mg PO DAILY 10/22/18 06/09/21 hydrALAZINE HCL [Apresoline] 50 mg PO BID 10/22/18 06/09/21 Dapagliflozin Propanediol [Farxiga] 5 mg PO DAILY 01/15/20 06/09/21 Diclofenac Sodium [Voltaren] 50 mg PO TID 01/15/20 06/09/21 Rizatriptan Benzoate [Rizatriptan] 10 mg PO DAILY PRN 01/15/20 06/09/21 Semaglutide [Ozempic] 0.25 mg SQ TU 01/15/20 06/09/21 Sucralfate [Carafate] 1 gm PO ACHS 06/29/20 06/09/21 Aspirin [Adult Low Dose Aspirin EC] 81 mg PO DAILY 06/09/21 06/09/21 Allergies Allergy/AdvReac Type Severity Reaction Status Date / Time Penicillins Allergy Rash/Hives Verified 06/09/21 09:24 Review of Systems ROS Statement: Those systems with pertinent positive or pertinent negative responses have been documented in the HPI. ROS Other: All systems not noted in ROS Statement are negative. Past Medical History Past Medical History: Asthma, COPD, Diabetes Mellitus, GERD/Reflux, Hyperlipidemia, Hypertension, Osteoarthritis (OA), Rheumatoid Arthritis (RA), Sleep Apnea/CPAP/BIPAP, Thyroid Disorder Additional Past Medical History / Comment(s): hypothyroidism, restless leg syndrome, migraine headaches (Neurontin Rx prescribed for these) , HIATAL HERNIA, HAS SPOT IN BACK OF HEAD FROM PIECE OF SKULL BEING REMOVED. 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 EGD Past Anesthesia/Blood Transfusion Reactions: No Reported Reaction Past Psychological History: Anxiety, Depression Smoking Status: Never smoker Past Alcohol Use History: None Reported Past Drug Use History: None Reported - Past Family History Sister(s) Family Medical History: Deep Vein Thrombosis (DVT) Additional Family Medical History / Comment(s): SISTER HAD BLOOD CLOT IN LT ARM General Exam Limitations: no limitations General appearance: alert, in no apparent distress, anxious Head exam: Present: atraumatic, normocephalic, normal inspection Eye exam: Present: normal appearance, PERRL, EOMI. Absent: scleral icterus, conjunctival injection, periorbital swelling ENT exam: Present: normal exam, mucous membranes dry Neck exam: Present: normal inspection. Absent: tenderness, meningismus, lymphadenopathy Respiratory exam: Present: respiratory distress, wheezes, decreased breath sounds, prolonged expiratory. Absent: rales, rhonchi, stridor Cardiovascular Exam: Present: regular rate, normal rhythm, normal heart sounds. Absent: systolic murmur, diastolic murmur, rubs, gallop, clicks GI/Abdominal exam: Present: soft, normal bowel sounds. Absent: distended, tenderness, guarding, rebound, rigid Extremities exam: Present: normal inspection, full ROM, normal capillary refill. Absent: tenderness, pedal edema, joint swelling, calf tenderness Back exam: Present: normal inspection Neurological exam: Present: alert, oriented X3, CN II-XII intact Psychiatric exam: Present: normal affect, normal mood Skin exam: Present: warm, dry, intact, normal color. Absent: rash Course Vital Signs 06/27/21 06/27/21 06/27/21 04:47 05:25 05:32 Temperature 97.9 F Pulse Rate 81 77 78 Respiratory 18 Rate Blood Pressure 150/72 O2 Sat by Pulse 99 Oximetry Medical Decision Making - Medical Decision Making 21 female not really improved her breathing here in the ER, will be admitted for COPD exacerbation - Lab Data Result diagrams: 06/27/21 05:07 06/27/21 05:07 Lab Results 06/27/21 06/27/21 06/27/21 Range/Units 05:07 05:07 05:07 WBC 8.7 (3.8-10.6) k/uL RBC 4.58 (3.80-5.40) m/uL Hgb 14.9 (11.4-16.0) gm/dL Hct 44.3 (34.0-46.0) % MCV 96.5 (80.0-100.0) fL MCH 32.5 (25.0-35.0) pg MCHC 33.7 (31.0-37.0) g/dL RDW 13.5 (11.5-15.5) % Plt Count 276 (150-450) k/uL MPV 6.8 Neutrophils % 58 % Lymphocytes % 32 % Monocytes % 5 % Eosinophils % 3 % Basophils % 1 % Neutrophils # 5.1 (1.3-7.7) k/uL Lymphocytes # 2.8 (1.0-4.8) k/uL Monocytes # 0.4 (0-1.0) k/uL Eosinophils # 0.3 (0-0.7) k/uL Basophils # 0.1 (0-0.2) k/uL PT 10.8 (9.0-12.0) sec INR 1.0 (<1.2) APTT 21.6 L (22.0-30.0) sec Sodium 140 (137-145) mmol/L Potassium 4.4 (3.5-5.1) mmol/L Chloride 107 (98-107) mmol/L Carbon Dioxide 24 (22-30) mmol/L Anion Gap 9 mmol/L BUN 19 H (7-17) mg/dL Creatinine 0.72 (0.52-1.04) mg/dL Est GFR (CKD-EPI)AfAm >90 (>60 ml/min/1.73 sqM) Est GFR (CKD-EPI)NonAf >90 (>60 ml/min/1.73 sqM) Glucose 114 H (74-99) mg/dL Plasma Lactic Acid Fortunato (0.7-2.0) mmol/L Calcium 8.8 (8.4-10.2) mg/dL Magnesium 2.0 (1.6-2.3) mg/dL Total Bilirubin 0.6 (0.2-1.3) mg/dL AST 49 H (14-36) U/L ALT 35 H (4-34) U/L Alkaline Phosphatase 76 (38-126) U/L Creatine Kinase 144 H (30-135) U/L Troponin I (0.000-0.034) ng/mL Total Protein 6.9 (6.3-8.2) g/dL Albumin 4.0 (3.5-5.0) g/dL 06/27/21 06/27/21 Range/Units 05:07 05:07 WBC (3.8-10.6) k/uL RBC (3.80-5.40) m/uL Hgb (11.4-16.0) gm/dL Hct (34.0-46.0) % MCV (80.0-100.0) fL MCH (25.0-35.0) pg MCHC (31.0-37.0) g/dL RDW (11.5-15.5) % Plt Count (150-450) k/uL MPV Neutrophils % % Lymphocytes % % Monocytes % % Eosinophils % % Basophils % % Neutrophils # (1.3-7.7) k/uL Lymphocytes # (1.0-4.8) k/uL Monocytes # (0-1.0) k/uL Eosinophils # (0-0.7) k/uL Basophils # (0-0.2) k/uL PT (9.0-12.0) sec INR (<1.2) APTT (22.0-30.0) sec Sodium (137-145) mmol/L Potassium (3.5-5.1) mmol/L Chloride (98-107) mmol/L Carbon Dioxide (22-30) mmol/L Anion Gap mmol/L BUN (7-17) mg/dL Creatinine (0.52-1.04) mg/dL Est GFR (CKD-EPI)AfAm (>60 ml/min/1.73 sqM) Est GFR (CKD-EPI)NonAf (>60 ml/min/1.73 sqM) Glucose (74-99) mg/dL Plasma Lactic Acid Fortunato 1.0 (0.7-2.0) mmol/L Calcium (8.4-10.2) mg/dL Magnesium (1.6-2.3) mg/dL Total Bilirubin (0.2-1.3) mg/dL AST (14-36) U/L ALT (4-34) U/L Alkaline Phosphatase (38-126) U/L Creatine Kinase (30-135) U/L Troponin I <0.012 (0.000-0.034) ng/mL Total Protein (6.3-8.2) g/dL Albumin (3.5-5.0) g/dL - EKG Data -: EKG Interpreted by Me (EKG is sinus rhythm 79 MT 186 QRS 96 QTc 493) - Radiology Data Radiology results: report reviewed (Chest x-rays negative for acute disease), image reviewed Disposition Clinical Impression: Acute exacerbation of chronic obstructive pulmonary disease Disposition: ADMITTED IP TO THIS HOSP Condition: Undetermined Is patient prescribed a controlled substance at d/c from ED?: No Referrals: Hang Young MD [Primary Care Provider] - 1-2 days
--- NOTE | 2021-06-27 05:21 | XR ---
EXAMINATION TYPE: XR chest 1V portable DATE OF EXAM: 06/27/2021 COMPARISON: 07/30/2016 HISTORY: Short of breath TECHNIQUE: FINDINGS: There is no heart failure nor confluent pneumonic infiltrate. Costophrenic angles are clear . Bony thorax is intact. Exam limited by patient's size. There are chest leads. IMPRESSION: No active cardiopulmonary disease. No change.
[2021-06-27 05:32] LABS: Basophils # (A) 0.1 k/uL (0-0.2); Basophils % (A) 1 %; Eosinophils # (A) 0.3 k/uL (0-0.7); Eosinophils % (A) 3 %; HCT 44.3 % (34.0-46.0); HGB 14.9 gm/dL (11.4-16.0); Lymphocytes # (A) 2.8 k/uL (1.0-4.8); Lymphocytes % (A) 32 %; MCH 32.5 pg (25.0-35.0); MCHC 33.7 g/dL (31.0-37.0); MCV 96.5 fL (80.0-100.0); Mean Platelet Volume 6.8; Monocytes # (A) 0.4 k/uL (0-1.0); Monocytes % (A) 5 %; Neutrophils # (A) 5.1 k/uL (1.3-7.7); Neutrophils % (A) 58 %; Platelet Count 276 k/uL (150-450); RBC 4.58 m/uL (3.80-5.40); RDW 13.5 % (11.5-15.5); WBC 8.7 k/uL (3.8-10.6)
[2021-06-27 05:37] LABS: ALT 35 U/L (4-34); African American GFR (CKD) >90 (>60 ml/min/1.73 sqM); Anion Gap 9 mmol/L; Blood Urea Nitrogen 19 mg/dL (7-17); Calcium 8.8 mg/dL (8.4-10.2); Carbon Dioxide 24 mmol/L (22-30); Chloride 107 mmol/L (98-107); Creatine Kinase 144 U/L (30-135); Glucose 114 mg/dL (74-99); Non-African American GFR(CKD) >90 (>60 ml/min/1.73 sqM); Sodium 140 mmol/L (137-145); Total Bilirubin 0.6 mg/dL (0.2-1.3); Total Protein 6.9 g/dL (6.3-8.2)
[2021-06-27 05:39] LABS: AST 49 U/L (14-36); Alkaline Phosphatase 76 U/L (38-126); Potassium 4.4 mmol/L (3.5-5.1)
[2021-06-27 05:47] LABS: Prothrombin Time 10.8 sec (9.0-12.0)
[2021-06-27 05:48] LABS: Partial Thromboplastin Time 21.6 sec (22.0-30.0)
[2021-06-27] MEDS ORDERED: AZITHROMYCIN 500 MG in SODIUM CHLORIDE 0.9% 250 ML IVPB STA (06:05)
[2021-06-27] MEDS: ALBUTEROL NEBULIZED 2.5 MG/3 ML INHALATION SCH ×4 (07:56→19:26)
[2021-06-27] MEDS ORDERED: ALBUTEROL NEBULIZED 2.5 MG/3 ML INHALATION PRN (11:53)
[2021-06-27] MEDS ORDERED: FLUTICASONE 50MCG/SPRAY NASAL 16GM EA NOSTRIL PRN (11:53)
[2021-06-27] MEDS ORDERED: BUTALB/APAP/CAFF 50-325-40MG TAB PO PRN (11:53)
[2021-06-27] MEDS: methylPREDNISolone SOD SUCCI 125 MG/2 ML VIAL IV SCH ×2 (12:11→18:03)
[2021-06-27] MEDS: SUCRALFATE 1 GM TAB PO SCH ×2 (12:35→18:03)
[2021-06-27] MEDS: CHOLECALCIFEROL 25 MCG (1000 IU) TABLET PO SCH (12:35)
[2021-06-27] MEDS: ETODOLAC 200 MG CAPSULE PO SCH ×2 (15:47→21:45)
[2021-06-27 17:53] LABS: Glucose,Whole Blood 138 mg/dL (75-99)
--- NOTE | 2021-06-27 19:09 | HP ---
HISTORY AND PHYSICAL HISTORY OF PRESENT ILLNESS: 61-year-old white female comes in with shortness of breath. She is supposed to get a heart catheterization on the day of admission. She came in due to shortness of breath, cough, and chest tightness. She takes nitros at home. I had given her some nitro. She went home. She took a few. She had worsening chest pain. She came to the hospital. Possible treat for COPD exacerbation, possible heart catheterization will need to be done. MEDICATIONS: Home medicines include Ventolin, Symbicort 162 puffs b.i.d., Levoxyl 100 mcg a day, Claritin 10 mg daily, Remeron 15 at night, Singulair 10 mg daily. Paxil 20 mg daily, potassium chloride 10 mEq daily, Topamax 50 daily, Requip 1 mg q.h.s., omeprazole 40 mg daily, Norvasc 5 mg daily, Tenormin 25 mg daily, Lasix 20 mg daily, Neurontin 300 b.i.d., Crestor 10 mg daily, Wellbutrin XR 150 b.i.d., BuSpar 10 daily, Apresoline 50 b.i.d., 5 mg daily, Voltaren 50 mg b.i.d., Farxiga 10 mg daily, Ozempic 0.25 once a week, Carafate 1 gram a.c.,. q.h.s., aspirin 81 mg daily. ALLERGIES: PENICILLIN REVIEW OF SYMPTOMS: 14-point review of systems negative except for mentioned in HPI except for morbid obesity, worsening chest pain. Scheduled for heart catheterization this week after failing a stress test. PAST MEDICAL HISTORY: Asthma, COPD, diabetes mellitus, morbid obesity, hypertension, GERD, dyslipidemia, rheumatoid arthritis, osteoarthritis, sleep apnea, restless legs syndrome, hypothyroidism, migraines, hiatal hernia. History of anxiety depression. PAST SURGICAL HISTORY: She had colonoscopy, bilateral left leg surgery. SOCIAL HISTORY: FAMILY HISTORY: Sister DVT. PHYSICAL EXAMINATION: Vital signs stable. Afebrile. CARDIOVASCULAR: S1, S2. LUNGS: Clear. GI soft. HEMATOLOGY: Negative Homans. PSYCH: Fair mood and affect. NEUROLOGIC: Alert and oriented x3. Pupils equal, round, reactive. ENDOCRINE BMI is over 40. Blood pressure 150/72, pulse 70s to 80s. Temp 97.9, respiratory 16 to 18, O2 99%. BUN is 19, creatinine 0.72. White count 8.7, hemoglobin is 14.9. Creatine kinase 144. ASSESSMENT: 1. Acute chronic obstructive pulmonary disease exacerbation. 2. Atypical chest pain. 3. Recent abnormal stress test needs heart catheterization done. Cardiology and Pulmonary consulted. Continue with steroids and updraft treatments. Prognosis guarded. MMSIMONL / MARCION: [id number] /
[2021-06-27] MEDS: SYMBICORT 160-4.5 MCG INHALER INHALATION SCH (19:27)
[2021-06-27 20:37] LABS: Glucose,Whole Blood 193 mg/dL (75-99)
[2021-06-27] MEDS: MECLIZINE 25 MG TAB PO SCH (21:46)
[2021-06-27] MEDS: DOCUSATE 100 MG CAP PO SCH (21:46)
[2021-06-27] MEDS: hydrALAZINE HCL 50 MG TAB PO SCH (21:46)
[2021-06-27] MEDS: MIRTAZAPINE 15 MG TAB PO SCH (21:46)
[2021-06-27] MEDS: buPROPion SR 150 MG TABLET.ER PO SCH (21:46)
[2021-06-27] MEDS: ASPIRIN 81 MG PO SCH (21:46)
[2021-06-27] MEDS: MONTELUKAST 10 MG TAB PO SCH (21:46)
[2021-06-28] MEDS: methylPREDNISolone SOD SUCCI 125 MG/2 ML VIAL IV SCH ×4 (00:19→17:23)
[2021-06-28] MEDS: LEVOTHYROXINE 100 MCG TAB PO SCH (05:36)
[2021-06-28] MEDS ORDERED: AZITHROMYCIN 500 MG in SODIUM CHLORIDE 0.9% 250 ML IVPB SCH (07:00)
[2021-06-28 07:17] LABS: Glucose,Whole Blood 157 mg/dL (75-99)
[2021-06-28] MEDS: SYMBICORT 160-4.5 MCG INHALER INHALATION SCH ×2 (07:29→21:10)
[2021-06-28] MEDS: ALBUTEROL NEBULIZED 2.5 MG/3 ML INHALATION SCH ×4 (07:29→21:09)
[2021-06-28] MEDS: ATORVASTATIN 40 MG TAB PO SCH (08:12)
[2021-06-28] MEDS: SUCRALFATE 1 GM TAB PO SCH ×3 (08:12→17:23)
[2021-06-28] MEDS: ETODOLAC 200 MG CAPSULE PO SCH ×3 (08:13→20:09)
[2021-06-28] MEDS: POTASSIUM CHLORIDE ER 10 MEQ TAB.ER.PRT PO SCH (08:13)
[2021-06-28] MEDS: LORATADINE 10 MG TAB PO SCH (08:13)
[2021-06-28] MEDS: hydrALAZINE HCL 50 MG TAB PO SCH ×2 (08:14→20:09)
[2021-06-28] MEDS: atenoloL 25 MG TAB PO SCH (08:14)
[2021-06-28] MEDS: amLODIPine 5 MG TAB PO SCH (08:14)
[2021-06-28] MEDS: FUROSEMIDE 20 MG TAB PO SCH (08:14)
[2021-06-28] MEDS: MECLIZINE 25 MG TAB PO SCH ×2 (08:15→20:09)
[2021-06-28] MEDS: DOCUSATE 100 MG CAP PO SCH ×2 (08:15→20:10)
[2021-06-28] MEDS: TOPIRAMATE 25 MG TAB PO SCH (08:15)
[2021-06-28] MEDS: buPROPion SR 150 MG TABLET.ER PO SCH ×2 (08:15→20:09)
[2021-06-28] MEDS: PANTOPRAZOLE 40 MG TABLET PO SCH (08:15)
[2021-06-28] MEDS: busPIRone HCl 10 MG TAB PO SCH (08:16)
[2021-06-28] MEDS: PARoxetine 20 MG TAB PO SCH (08:16)
[2021-06-28] MEDS ORDERED: ALPRAZolam 0.5 MG TAB PO PRN (08:30)
[2021-06-28] MEDS ORDERED: SODIUM CHLORIDE 0.9% 1,000 ML in EMPTY BAG 1 BAG IV ONE (08:30)
--- NOTE | 2021-06-28 08:53 | P.CNPUL ---
History of Present Illness Consult date: 06/28/21 Reason for consult: dyspnea, cough, COPD, hypoxemia Chief complaint: Cough shortness of breath History of present illness: This is a 61-year-old with no history of smoking and ethanol abuse came into the hospital with increasing shortness of breath cough and wheezing is started about 5-7 days ago has been progressive in nature, patient has prior history of bronchial asthma, mild to moderate persistent asthma patient also has a significant history of hypothyroidism mood disorder depression morbid obesity hypertension hypertensive cardiovascular disease peripheral neuropathy dyslipidemia, type 2 diabetes mellitus, her chest x-ray overall remains stable, she denies any headache however some nasal congestion and stuffiness present, ongoing wheezing, denies any chest pain, denies any GI/ problems, Review of Systems All systems: negative Past Medical History Past Medical History: Asthma, COPD, Diabetes Mellitus, GERD/Reflux, Hyper lipidemia, Hypertension, Osteoarthritis (OA), Rheumatoid Arthritis (RA), Sleep Apnea/CPAP/BIPAP, Thyroid Disorder Additional Past Medical History / Comment(s): hypothyroidism, restless leg syndrome, migraine headaches (Neurontin Rx prescribed for these) , HIATAL HERNIA, HAS SPOT IN BACK OF HEAD FROM PIECE OF SKULL BEING REMOVED. 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 EGD Past Anesthesia/Blood Transfusion Reactions: No Reported Reaction Past Psychological History: Anxiety, Depression Smoking Status: Never smoker Past Alcohol Use History: None Reported Past Drug Use History: None Reported - Past Family History Sister(s) Family Medical History: Deep Vein Thrombosis (DVT) Additional Family Medical History / Comment(s): SISTER HAD BLOOD CLOT IN LT ARM Medications and Allergies Home Medications Medication Instructions Recorded Confirmed Type Budesonide-Formot 160-4.5 Mcg 2 puff INHALATION RT-BID 06/04/15 06/27/21 History [Symbicort 160-4.5 Mcg Inhaler] Levothyroxine Sodium [Levoxyl] 100 mcg PO DAILY 06/04/15 06/27/21 History Loratadine [Claritin] 10 mg PO DAILY 06/04/15 06/27/21 History Mirtazapine [Remeron] 15 mg PO HS 06/04/15 06/27/21 History Montelukast Sodium [Singulair] 10 mg PO HS 06/04/15 06/27/21 History PARoxetine HCL [Paxil] 20 mg PO DAILY 06/04/15 06/27/21 History Potassium Chloride ER [K-Dur 10] 10 meq PO DAILY 06/04/15 06/27/21 History Topiramate [Topamax] 50 mg PO DAILY 06/04/15 06/27/21 History rOPINIRole HCL [Requip] 1 mg PO HS 06/04/15 06/27/21 History Omeprazole 40 mg PO DAILY 10/23/17 06/27/21 History amLODIPine BESYLATE [Norvasc] 5 mg PO DAILY 10/23/17 06/27/21 History atenoloL [Tenormin] 25 mg PO DAILY 10/23/17 06/27/21 History Docusate [Colace] 100 mg PO BID 10/22/18 06/27/21 History Furosemide [Lasix] 20 mg PO DAILY 10/22/18 06/27/21 History buPROPion HCL [Wellbutrin SR] 150 mg PO BID 10/22/18 06/27/21 History busPIRone HCl [Buspar] 10 mg PO DAILY 10/22/18 06/27/21 History hydrALAZINE HCL [Apresoline] 50 mg PO BID 10/22/18 06/27/21 History Dapagliflozin Propanediol [Farxiga] 5 mg PO DAILY@1200 01/15/20 06/27/21 History Diclofenac Sodium [Voltaren] 50 mg PO TID 01/15/20 06/27/21 History Sucralfate [Carafate] 1 gm PO AC-TID 06/29/20 06/27/21 History Aspirin [Adult Low Dose Aspirin EC] 81 mg PO HS 06/09/21 06/27/21 History Albuterol Nebulized [Ventolin 2.5 mg INHALATION RT-Q6H PRN 06/27/21 06/27/21 History Nebulized] Albuterol Sulfate [Albuterol 1 - 2 puff PO RT-Q6H PRN 06/27/21 06/27/21 History Sulfate Hfa] Butalb/Acetaminophen/Caffeine 1 tab PO DAILY PRN 06/27/21 06/27/21 History [Fioricet 50-325-40] Cholecalciferol [Vitamin D3 (25 50 mcg PO DAILY@1200 06/27/21 06/27/21 History Mcg = 1000 Iu)] Fluticasone Nasal [place] [Flonase 1 spray EA NOSTRIL DAILY PRN 06/27/21 06/27/21 History Nasal [place]] Meclizine [Antivert] 25 mg PO BID 06/27/21 06/27/21 History Rosuvastatin [Crestor] 20 mg PO DAILY 06/27/21 06/27/21 History Semaglutide [Ozempic] 1 mg SQ TU 06/27/21 06/27/21 History Tiotropium [place] [Spiriva] 1 cap INHALATION RT-DAILY 06/27/21 06/27/21 History Tolterodine ER [Detrol LA] 4 mg PO DAILY 06/27/21 06/27/21 History Allergies Allergy/AdvReac Type Severity Reaction Status Date / Time Penicillins Allergy Rash/Hives Verified 06/27/21 07:49 Physical Exam Vitals: Vital Signs Temp Pulse Pulse Pulse Resp BP BP 06/28/21 07:49 80 06/28/21 07:29 80 06/28/21 07:00 97.5 F L 80 16 06/28/21 02:00 14 06/28/21 01:44 97.8 F 85 14 99/59 06/27/21 20:00 14 06/27/21 19:38 84 16 06/27/21 19:29 82 16 06/27/21 19:27 98.6 F 101 H 18 112/81 06/27/21 17:02 97.8 F 100 16 146/64 06/27/21 16:44 98.3 F 96 20 145/72 06/27/21 16:16 83 16 06/27/21 16:04 85 18 06/27/21 13:20 97.6 F 89 20 148/89 06/27/21 10:56 88 16 06/27/21 10:45 86 16 BP Pulse Ox 06/28/21 07:49 06/28/21 07:29 06/28/21 07:00 116/76 94 L 06/28/21 02:00 06/28/21 01:44 93 L 06/27/21 20:00 06/27/21 19:38 06/27/21 19:29 06/27/21 19:27 95 06/27/21 17:02 96 06/27/21 16:44 96 06/27/21 16:16 06/27/21 16:04 06/27/21 13:20 97 06/27/21 10:56 06/27/21 10:45 Intake and Output 06/27/21 06/28/21 06/28/21 22:59 06:59 14:59 Other: # Voids 3 1 Weight 113.398 kg - Constitutional General appearance: disheveled, morbidly obese - EENT Eyes: EOMI, PERRLA Ears: bilateral: normal - Neck Neck: normal ROM Carotids: bilateral: upstroke normal Thyroid: bilateral: normal size - Respiratory Respiratory: bilateral: wheezing - Cardiovascular Rhythm: regular Heart sounds: normal: S1, S2 - Integumentary Integumentary: decreased turgor - Neurologic Neurologic: CNII-XII intact - Musculoskeletal Musculoskeletal: gait normal, generalized weakness, strength equal bilaterally - Psychiatric Psychiatric: A&O x's 3, appropriate affect, intact judgment & insight Results - Laboratory Findings CBC and BMP: 06/27/21 05:07 06/27/21 05:07 PT/INR, D-dimer PT 10.8 sec (9.0-12.0) 06/27/21 05:07 INR 1.0 (<1.2) 06/27/21 05:07 D-Dimer 0.32 mg/L FEU (<0.60) 06/27/21 12:28 Abnormal lab findings: Abnormal Labs 06/27/21 06/27/21 06/27/21 05:07 05:07 17:51 APTT 21.6 L BUN 19 H Glucose 114 H POC Glucose (mg/dL) 138 H AST 49 H ALT 35 H Creatine Kinase 144 H 06/27/21 06/28/21 20:35 07:16 APTT BUN Glucose POC Glucose (mg/dL) 193 H 157 H AST ALT Creatine Kinase - Diagnostic Findings Chest x-ray: report reviewed, image reviewed Assessment and Plan Assessment: Acute COPD exacerbation Tracheobronchitis Type 2 diabetes mellitus Severe morbid obesity Hypertension hypertensive cardiovascular disease Hypothyroidism Dyslipidemia Plan: Overall plan includes continue IV steroids breathing treatment, remains on broad-spectrum antibiotics follow clinical course closely closely patient will need a sleep study as outpatient Time with Patient: Greater than 30
--- NOTE | 2021-06-28 09:42 | P.CRDCN ---
History of Present Illness History of present illness: HISTORY OF PRESENTING ILLNESS This is a pleasant 61-year-old female past medical history significant for type 2 diabetes, hypertension, dyslipidemia COPD, asthma. She follows in the office with Dr. Pineda. We have been asked to see in consultation for chest pain. Patient is seen and examined at bedside. Patient presents to the emergency department with worsening shortness of breath at night. She states she called her primary care provider and told to the emergency department. She states she's been having shortness of breath for one week, is intermittent and comes and goes however she feels that it is getting worse. She states she does give chest pain, she does have heartburn however her chest pain yesterday did worsen and she describes a different than her typical heartburn. She describes the chest pain as a tightness. It is worse with exertion. Non radiating. Associated with shortness of breath. Patient recently underwent a Lexiscan stress test on 04/11/2021 which revealed stress induced ischemia lateral wall of the left ventricle difficult to exclude. Patient was referred to Dr. Pineda. Patient saw Dr. Pineda in the office. Coronary angiogram was recommended which was scheduled yesterday 06/27, however patient was in the emergency department procedure was canceled. DIAGNOSTICS EKG reveals sinus rhythm, heart rate 79, prolonged QT QTc 492., no significant ST-T wave abnormalities. Telemetry tracings indicate sinus mechanism heart rate 70s to 80s.. Most recent echocardiogram 06/2019 with an EF of 55-60%, mild concentric left ventricular hypertrophy. Chest xray no acute cardiopulmonary process Laboratory reviewed, troponin negative 1, sodium 140, potassium 4.4, BUN 19, serum troponin 0.7, magnesium 2.0, d-dimer negative, AST 49, ALT 35, creatine kinase 144, WBC 8.7, hemoglobin 14.9, platelets 276 REVIEW OF SYSTEMS At the time of my exam: CONSTITUTIONAL: Denies fever or chills. CARDIOVASCULAR: Positive chest pain, positive shortness of breath +orthopnea De nies PND or palpitations. RESPIRATORY: +cough. GASTROINTESTINAL: Denies abdominal pain, diarrhea, constipation, nausea or vomiting. MUSCULOSKELETAL: Denies myalgias. NEUROLOGIC: Denies numbness, tingling, headacbe or weakness. ENDOCRINE: Denies fatigue, weight change, polydipsia or polyurina. GENITOURINARY: Denies burning, hematuria or urgency with micturation. HEMATOLOGIC: Denies history of anemia or bleeding. PHYSICAL EXAMINATION Blood pressure 116/76 heart rate 80 afebrile and maintaining oxygen saturation 94% 2 L nasal cannula CONSTITUTIONAL: No apparent distress. HEENT: Head is normocephalic. Pupils are equal, round. Sclerae anicteric. Mucous membranes of the mouth are moist. No JVD. No carotid bruit. CHEST EXAMINATION: Lungs are clear to auscultation. No chest wall tenderness is noted on palpation or with deep breathing. HEART EXAMINATION: Regular rate and rhythm. S1, S2 heard. No murmurs, gallops or rub. ABDOMEN: Soft, nontender. Positive bowel sounds. EXTREMITIES: 2+ peripheral pulses, no lower extremity edema and no calf tenderness. NEUROLOGIC EXAMINATION: Patient is awake, alert and oriented x3. ASSESSMENT Chest pain, with recent abnormal Lexiscan stress test Type 2 diabetes Hypertension Dyslipidemia COPD Asthma Obesity PLAN We will plan for cardiac catheterization with Dr. Pineda today. Patient is agreeable to procedure I have discussed the risks, benefits and alternative therapies for the above- mentioned procedure and for both sedation/analgesia as well as necessary blood product administration, if indicated, as they pertain to this patient. The patient has indicated understanding and acceptance of the risks and procedures discussed. Questions have been answered appropriately and he is agreeable to move forward with the above-stated procedure. Obtain 2D echocardiogram and doppler study to assess cardiac structure and function. Continue home cardiac medications Further recommendations based on clinical course Nurse Practitioner note has been reviewed, I agree with a documented findings and plan of care. Patient was seen and examined. Past Medical History Past Medical History: Asthma, COPD, Diabetes Mellitus, GERD/Reflux, Hyperlipidemia, Hypertension, Osteoarthritis (OA), Rheumatoid Arthritis (RA), Sleep Apnea/CPAP/BIPAP, Thyroid Disorder Additional Past Medical History / Comment(s): hypothyroidism, restless leg syndrome, migraine headaches (Neurontin Rx prescribed for these) , HIATAL HERNIA, HAS SPOT IN BACK OF HEAD FROM PIECE OF SKULL BEING REMOVED. 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 EGD Past Anesthesia/Blood Transfusion Reactions: No Reported Reaction Past Psychological History: Anxiety, Depression Smoking Status: Never smoker Past Alcohol Use History: None Reported Past Drug Use History: None Reported - Past Family History Sister(s) Family Medical History: Deep Vein Thrombosis (DVT) Additional Family Medical History / Comment(s): SISTER HAD BLOOD CLOT IN LT ARM Medications and Allergies Home Medications Medication Instructions Recorded Confirmed Type Budesonide-Formot 160-4.5 Mcg 2 puff INHALATION RT-BID 06/04/15 06/27/21 History [Symbicort 160-4.5 Mcg Inhaler] Levothyroxine Sodium [Levoxyl] 100 mcg PO DAILY 06/04/15 06/27/21 History Loratadine [Claritin] 10 mg PO DAILY 06/04/15 06/27/21 History Mirtazapine [Remeron] 15 mg PO HS 06/04/15 06/27/21 History Montelukast Sodium [Singulair] 10 mg PO HS 06/04/15 06/27/21 History PARoxetine HCL [Paxil] 20 mg PO DAILY 06/04/15 06/27/21 History Potassium Chloride ER [K-Dur 10] 10 meq PO DAILY 06/04/15 06/27/21 History Topiramate [Topamax] 50 mg PO DAILY 06/04/15 06/27/21 History rOPINIRole HCL [Requip] 1 mg PO HS 06/04/15 06/27/21 History Omeprazole 40 mg PO DAILY 10/23/17 06/27/21 History amLODIPine BESYLATE [Norvasc] 5 mg PO DAILY 10/23/17 06/27/21 History atenoloL [Tenormin] 25 mg PO DAILY 10/23/17 06/27/21 History Docusate [Colace] 100 mg PO BID 10/22/18 06/27/21 History Furosemide [Lasix] 20 mg PO DAILY 10/22/18 06/27/21 History buPROPion HCL [Wellbutrin SR] 150 mg PO BID 10/22/18 06/27/21 History busPIRone HCl [Buspar] 10 mg PO DAILY 10/22/18 06/27/21 History hydrALAZINE HCL [Apresoline] 50 mg PO BID 10/22/18 06/27/21 History Dapagliflozin Propanediol [Farxiga] 5 mg PO DAILY@1200 01/15/20 06/27/21 History Diclofenac Sodium [Voltaren] 50 mg PO TID 01/15/20 06/27/21 History Sucralfate [Carafate] 1 gm PO AC-TID 06/29/20 06/27/21 History Aspirin [Adult Low Dose Aspirin EC] 81 mg PO HS 06/09/21 06/27/21 History Albuterol Nebulized [Ventolin 2.5 mg INHALATION RT-Q6H PRN 06/27/21 06/27/21 History Nebulized] Albuterol Sulfate [Albuterol 1 - 2 puff PO RT-Q6H PRN 06/27/21 06/27/21 History Sulfate Hfa] Butalb/Acetaminophen/Caffeine 1 tab PO DAILY PRN 06/27/21 06/27/21 History [Fioricet 50-325-40] Cholecalciferol [Vitamin D3 (25 50 mcg PO DAILY@1200 06/27/21 06/27/21 History Mcg = 1000 Iu)] Fluticasone Nasal [place] [Flonase 1 spray EA NOSTRIL DAILY PRN 06/27/21 06/27/21 History Nasal [place]] Meclizine [Antivert] 25 mg PO BID 06/27/21 06/27/21 History Rosuvastatin [Crestor] 20 mg PO DAILY 06/27/21 06/27/21 History Semaglutide [Ozempic] 1 mg SQ TU 06/27/21 06/27/21 History Tiotropium [place] [Spiriva] 1 cap INHALATION RT-DAILY 06/27/21 06/27/21 History Tolterodine ER [Detrol LA] 4 mg PO DAILY 06/27/21 06/27/21 History Allergies Allergy/AdvReac Type Severity Reaction Status Date / Time Penicillins Allergy Rash/Hives Verified 06/27/21 07:49 Physical Exam Vitals: Vital Signs Temp Pulse Pulse Pulse Resp BP BP 06/28/21 02:00 14 06/28/21 01:44 97.8 F 85 14 99/59 06/27/21 20:00 14 06/27/21 19:38 84 16 06/27/21 19:29 82 16 06/27/21 19:27 98.6 F 101 H 18 112/81 06/27/21 17:02 97.8 F 100 16 146/64 06/27/21 16:44 98.3 F 96 20 145/72 06/27/21 16:16 83 16 06/27/21 16:04 85 18 06/27/21 13:20 97.6 F 89 20 148/89 06/27/21 10:56 88 16 06/27/21 10:45 86 16 06/27/21 08:08 74 18 06/27/21 07:56 79 18 Pulse Ox 06/28/21 02:00 06/28/21 01:44 93 L 06/27/21 20:00 06/27/21 19:38 06/27/21 19:29 06/27/21 19:27 95 06/27/21 17:02 96 06/27/21 16:44 96 06/27/21 16:16 06/27/21 16:04 06/27/21 13:20 97 06/27/21 10:56 06/27/21 10:45 06/27/21 08:08 06/27/21 07:56 94 L Intake and Output 06/27/21 06/27/21 06/28/21 14:59 22:59 06:59 Other: # Voids 3 1 Weight 113.398 kg Results 06/27/21 05:07 06/27/21 05:07 Current Medications Generic Name Dose Route Start Last Admin Trade Name Freq PRN Reason Stop Dose Admin Acetaminophen/Butalbital/Caffeine 1 each 06/27/21 11:53 Butalb/Apap/Caff 50-325-40mg Tab PO DAILY PRN Headache Albuterol Sulfate 5 mg 06/27/21 08:00 06/27/21 19:26 Albuterol Nebulized 2.5 Mg/3 Ml INHALATION 5 mg RT-QID OLIVIA Administration Albuterol Sulfate 2.5 mg 06/27/21 11:53 Albuterol Nebulized 2.5 Mg/3 Ml INHALATION RT-Q6H PRN Shortness Of Breath Amlodipine Besylate 5 mg 06/28/21 09:00 Amlodipine 5 Mg Tab PO DAILY OLIVIA Aspirin 81 mg 06/27/21 21:00 06/27/21 21:46 Aspirin 81 Mg PO 81 mg HS OLIVIA Administration Atenolol 25 mg 06/28/21 09:00 Atenolol 25 Mg Tab PO DAILY [facility] Atorvastatin Calcium 40 mg 06/28/21 09:00 Atorvastatin 40 Mg Tab PO DAILY [facility] Budesonide/Formoterol Fumarate 2 puff 06/27/21 20:00 06/27/21 19:27 Symbicort 160-4.5 Mcg Inhaler INHALATION 2 puff RT-BID [facility] Administration Bupropion HCl 150 mg 06/27/21 21:00 06/27/21 21:46 Bupropion Sr 150 Mg Tablet.Er PO 150 mg BID [facility] Administration Buspirone HCl 10 mg 06/28/21 09:00 Buspirone Hcl 10 Mg Tab PO DAILY [facility] Cholecalciferol 50 mcg 06/27/21 12:00 06/27/21 12:35 Cholecalciferol 25 Mcg (1000 Iu) Tablet PO 50 mcg DAILY@1200 [facility] Administration Docusate Sodium 100 mg 06/27/21 21:00 06/27/21 21:46 Docusate 100 Mg Cap PO 100 mg BID [facility] Administration Etodolac 200 mg 06/27/21 16:00 06/27/21 21:45 Etodolac 200 Mg Capsule PO 200 mg TID [facility] Administration Fluticasone Propionate 1 spray 06/27/21 11:53 Fluticasone 50mcg/[place] Nasal 16gm EA NOSTRIL DAILY PRN Congestion Furosemide 20 mg 06/28/21 09:00 Furosemide 20 Mg Tab PO DAILY [facility] Hydralazine HCl 50 mg 06/27/21 21:00 06/27/21 21:46 Hydralazine Hcl 50 Mg Tab PO 50 mg BID [facility] Administration Azithromycin 500 mg/ Sodium 250 mls @ 250 mls/hr 06/28/21 07:00 Chloride IVPB DAILY@0700 [facility] Levothyroxine Sodium 100 mcg 06/28/21 06:30 06/28/21 05:36 Levothyroxine 100 Mcg Tab PO 100 mcg DAILY@0630 [facility] Administration Loratadine 10 mg 06/28/21 09:00 Loratadine 10 Mg Tab PO DAILY [facility] Meclizine HCl 25 mg 06/27/21 21:00 06/27/21 21:46 Meclizine 25 Mg Tab PO 25 mg BID [facility] Administration Methylprednisolone Sodium Succinate 60 mg 06/27/21 12:00 06/28/21 05:36 Methylprednisolone Sod Succi 125 Mg/2 Ml Vial IV 60 mg Q6HR OLIVIA Administration Mirtazapine 15 mg 06/27/21 21:00 06/27/21 21:46 Mirtazapine 15 Mg Tab PO 15 mg HS OLIVIA Administration Montelukast Sodium 10 mg 06/27/21 21:00 06/27/21 21:46 Montelukast 10 Mg Tab PO 10 mg HS OLIVIA Administration Pantoprazole Sodium 40 mg 06/28/21 07:30 Pantoprazole 40 Mg Tablet PO DAILY@0730 [facility] Paroxetine HCl 20 mg 06/28/21 09:00 Paroxetine 20 Mg Tab PO DAILY [facility] Potassium Chloride 10 meq 06/28/21 09:00 Potassium Chloride Er 10 Meq Tab.Er.Prt PO DAILY [facility] Ropinirole HCl 1 mg 06/27/21 21:00 06/27/21 21:46 Ropinirole Hcl 1 Mg Tab PO 1 mg HS OLIVIA Administration Sucralfate 1 gm 06/27/21 12:30 06/27/21 18:03 Sucralfate 1 Gm Tab PO 1 gm AC-TID [facility]IV[facility] Administration Tiotropium [place] 2 puff 06/28/21 08:00 Tiotropium 2.5 Mcg Inhaler INHALATION RT-DAILY [facility] Topiramate 50 mg 06/28/21 09:00 Topiramate 25 Mg Tab PO DAILY OLIVIA Intake and Output 06/27/21 06/27/21 06/28/21 14:59 22:59 06:59 Other: # Voids 3 1 Weight 113.398 kg Patient Weight 06/28/21 06:59 Weight 113.398 kg 06/27/21 05:07 06/27/21 05:07
[2021-06-28 11:23] LABS: Glucose,Whole Blood 178 mg/dL (75-99)
[2021-06-28] MEDS ORDERED: LIDOCAINE 1% INJ 10MG/ML (20 ML MDV) ONE (13:13)
[2021-06-28] MEDS ORDERED: HEPARIN SODIUM 1,000 UN/ML (10ML VL) ONE (13:16)
[2021-06-28] MEDS ORDERED: VERAPAMIL 2.5 MG/ML 2 ML AMP ONE (13:16)
[2021-06-28] MEDS ORDERED: LIDOCAINE 1% INJ 10MG/ML (20 ML MDV) SQ ONE (13:19)
[2021-06-28] MEDS ORDERED: MIDAZOLAM 2 MG/2 ML VIAL IVP ONE (13:19)
[2021-06-28] MEDS: VERAPAMIL SYRINGE (5 MG/10 ML) INTRAARTER ONE ×2 (13:23→13:33)
[2021-06-28] MEDS ORDERED: HEPARIN SODIUM 1,000 UN/ML (10ML VL) IV ONE (13:25)
[2021-06-28] MEDS ORDERED: IV FLUID CONTINUATION 1,000 ML IV ONE (13:32)
[2021-06-28] MEDS ORDERED: IOPAMIDOL-370 125ML BTL INJ ONE (13:34)
[2021-06-28] MEDS ORDERED: RX INFO: IV CONTRAST WAS GIVEN 1 EACH MISC MISCELLANE PRN (13:38)
--- NOTE | 2021-06-28 13:41 | ECHOF ---
Referral Reason:LV function MEASUREMENTS -------- HEIGHT: 147.3 cm WEIGHT: 113.4 kg BP: 116/76 IVSd: 1.0 cm (0.6 - 1.1) LVIDd: 5.0 cm (3.9 - 5.3) LVPWd: 1.1 cm (0.6 - 1.1) IVSs: 1.0 cm LVIDs: 3.1 cm LVPWs: 1.4 cm Ao Diam: 2.2 cm (2.0 - 3.7) AV Cusp: 1.5 cm (1.5 - 2.6) LA Diam: 3.7 cm (2.7 - 3.8) MV E Stefan: 0.63 m/s MV DecT: 184 ms MV A Stefan: 1.01 m/s MV E/A Ratio: 0.63 RAP: 5.00 mmHg RVSP: 27.27 mmHg FINDINGS -------- Sinus rhythm. This was a technically difficult study with suboptimal views. The left ventricular size is normal. There is borderline concentric left ventricular hypertrophy. Overall left ventricular systolic function is normal with, an EF between 55 - 60 %. The diastolic filling pattern is normal for the age of the patient 9.48. The RV was not well visualized. The left atrial size is normal. The right atrium was not well visualized. 5.0mg of Lumason was utilized for enhancement of images Interatrial and interventricular septum intact. The aortic valve was not well visualized. There is no evidence of aortic regurgitation. There is no evidence of aortic stenosis. The mitral valve was not well visualized. No mitral regurgitation. The tricuspid valve was not well visualized. Mild tricuspid regurgitation present. There is no ev idence of pulmonary hypertension. The right ventricular systolic pressure, as measured by Doppler, is 27.27mmHg. There is no pulmonic regurgitation present. The aortic root size is normal. IVC Not well visulized. There is no pericardial effusion. CONCLUSIONS -------- 1. The left ventricular size is normal. 2. There is borderline concentric left ventricular hypertrophy. 3. Overall left ventricular systolic function is normal with, an EF between 55 - 60 %. 4. The diastolic filling pattern is normal for the age of the patient 9.48 5. Mild tricuspid regurgitation present. INSIDE TECHNICAL SALES REPRESENTATIVE: Deneen Estrada MICHEAL
[2021-06-28] MEDS ORDERED: SODIUM CHLORIDE 0.9% 1,000 ML IV SCH (13:45)
[2021-06-28] MEDS: CHOLECALCIFEROL 25 MCG (1000 IU) TABLET PO SCH (14:19)
--- NOTE | 2021-06-28 15:09 | CC ---
CARDIAC CATHETERIZATION REPORT June 27, 2021 PERFORMING PHYSICIAN: Yaniv Pineda MD. PROCEDURE PERFORMED: Selective right and left coronary angiogram. INDICATIONS: Unstable angina. COMPLICATION: None. LEVEL OF SEDATION: Moderate with a sedation length of 20 minutes. PROCEDURE DESCRIPTION: After obtaining informed consent, the patient was brought to the cardiac matlab developer. The right radial artery was cannulated using micropuncture technique, the micropuncture wire passed easily then I placed a 6-[place] sheath at the right radial artery. After that I gave the patient 2 mg of verapamil IA and 8,000 units of heparin IV. Selective right and left coronary angiogram performed using JR4 and JL3.5 catheters. Left heart catheterization was not performed. The procedure was completed without any complication. SELECTIVE CORONARY ANGIOGRAM: 1. The right coronary artery is a medium caliber vessel. It is a dominant vessel. The RCA is angiographically normal. 2. The left main is angiographically normal. It bifurcates into left circumflex and left anterior descending artery. 3. The left circumflex is a large caliber vessel.. It is a codominant vessel. The left circumflex is angiographically normal it distally bifurcates into PDA and PLV branches both appeared to be angiographically normal. 4. The LAD appeared to be angiographically normal. It gives rise into a diagonal branch which is a medium caliber vessel, seems to be angiographically normal. CONCLUSION: 1. Normal coronary angiogram. Postprocedure management is medical treatment and follow up with the patient. MMODL / IJN: [id number] /
[2021-06-28] MEDS: TIOTROPIUM 2.5 MCG INHALER INHALATION SCH (17:03)
[2021-06-28 17:29] LABS: Glucose,Whole Blood 179 mg/dL (75-99)
[2021-06-28 20:00] LABS: Glucose,Whole Blood 201 mg/dL (75-99)
[2021-06-28] MEDS: MIRTAZAPINE 15 MG TAB PO SCH (20:09)
[2021-06-28] MEDS: ASPIRIN 81 MG PO SCH (20:09)
[2021-06-28] MEDS: MONTELUKAST 10 MG TAB PO SCH (20:09)
[2021-06-29] MEDS: methylPREDNISolone SOD SUCCI 125 MG/2 ML VIAL IV SCH ×2 (00:01→05:21)
[2021-06-29 05:21] LABS: Basophils % (A) 0 %; Eosinophils % (A) 0 %; HCT 41.7 % (34.0-46.0); HGB 14.3 gm/dL (11.4-16.0); Lymphocytes # (A) 1.6 k/uL (1.0-4.8); Lymphocytes % (A) 10 %; MCHC 34.3 g/dL (31.0-37.0); MCV 96.4 fL (80.0-100.0); Mean Platelet Volume 6.4; Monocytes # (A) 0.5 k/uL (0-1.0); Monocytes % (A) 3 %; Neutrophils # (A) 13.4 k/uL (1.3-7.7); Neutrophils % (A) 85 %; Platelet Count 316 k/uL (150-450); RBC 4.33 m/uL (3.80-5.40); RDW 13.3 % (11.5-15.5); WBC 15.7 k/uL (3.8-10.6)
[2021-06-29] MEDS: LEVOTHYROXINE 100 MCG TAB PO SCH (05:21)
[2021-06-29 05:31] LABS: African American GFR (CKD) >90 (>60 ml/min/1.73 sqM); Anion Gap 9 mmol/L; Blood Urea Nitrogen 19 mg/dL (7-17); Calcium 8.7 mg/dL (8.4-10.2); Carbon Dioxide 23 mmol/L (22-30); Chloride 107 mmol/L (98-107); Glucose 149 mg/dL (74-99); Non-African American GFR(CKD) >90 (>60 ml/min/1.73 sqM); Potassium 4.4 mmol/L (3.5-5.1); Sodium 139 mmol/L (137-145)
--- NOTE | 2021-06-29 06:21 | PN ---
PROGRESS NOTE Lis Whitney is a 61-year-old white female who had a heart catheterization through the wrist today. Apparently, she says no blockage was found. Her breathing is better with IV steroids. She will possibly be sent home tomorrow on a steroid taper. She is clinically improving. Cardiovascular S1-S2. Lungs clear. GI soft. Hematology negative Homans. Psych: Fair mood and affect. RCA, left main, left circumflex is normal. Possible discharge home in the next 24 to 48 hours on oral prednisone. MMODL / IJN: [id number] /
[2021-06-29] MEDS ORDERED: HEPARIN SODIUM,PORCINE 2,500 UNIT in SODIUM CHLORIDE 0.9% 250 ML IRRIGATION PRN (07:00)
[2021-06-29] MEDS ORDERED: HEPARIN SODIUM,PORCINE 10,000 UNIT in SODIUM CHLORIDE 0.9% 1,000 ML IRRIGATION PRN (07:00)
[2021-06-29] MEDS: SYMBICORT 160-4.5 MCG INHALER INHALATION SCH (07:04)
[2021-06-29] MEDS: ALBUTEROL NEBULIZED 2.5 MG/3 ML INHALATION SCH ×2 (07:04→11:32)
[2021-06-29 07:38] LABS: Glucose,Whole Blood 151 mg/dL (75-99)
[2021-06-29] MEDS: FUROSEMIDE 20 MG TAB PO SCH (08:03)
[2021-06-29] MEDS: LORATADINE 10 MG TAB PO SCH (08:03)
[2021-06-29] MEDS: PANTOPRAZOLE 40 MG TABLET PO SCH (08:03)
[2021-06-29] MEDS: atenoloL 25 MG TAB PO SCH (08:03)
[2021-06-29] MEDS: SUCRALFATE 1 GM TAB PO SCH (08:03)
[2021-06-29] MEDS: ETODOLAC 200 MG CAPSULE PO SCH (08:04)
[2021-06-29] MEDS: hydrALAZINE HCL 50 MG TAB PO SCH (08:04)
[2021-06-29] MEDS: amLODIPine 5 MG TAB PO SCH (08:04)
[2021-06-29] MEDS: busPIRone HCl 10 MG TAB PO SCH (08:04)
[2021-06-29] MEDS: buPROPion SR 150 MG TABLET.ER PO SCH (08:04)
[2021-06-29] MEDS: ATORVASTATIN 40 MG TAB PO SCH (08:04)
[2021-06-29] MEDS: POTASSIUM CHLORIDE ER 10 MEQ TAB.ER.PRT PO SCH (08:04)
[2021-06-29] MEDS: PARoxetine 20 MG TAB PO SCH (08:04)
[2021-06-29] MEDS: DOCUSATE 100 MG CAP PO SCH (08:04)
[2021-06-29] MEDS: TOPIRAMATE 25 MG TAB PO SCH (08:05)
[2021-06-29] MEDS: MECLIZINE 25 MG TAB PO SCH (08:05)
[2021-06-29 08:31] VITALS: BP 130/70; RESP 16; TEMP 97.6
[2021-06-29] MEDS ORDERED: AZITHROMYCIN 500 MG TAB PO SCH (09:00)
[2021-06-29] MEDS: TIOTROPIUM 2.5 MCG INHALER INHALATION SCH (10:32)
--- NOTE | 2021-06-29 10:59 | P.PN ---
Subjective Progress Note Date: 06/29/21 HISTORY OF PRESENT ILLNESS: This is a pleasant 61-year-old female past medical history significant for type 2 diabetes, hypertension, dyslipidemia COPD, asthma. She follows in the office with Dr. Pineda. We have been asked to see in consultation for chest pain. Patient is seen and examined at bedside. Patient presents to the emergency department with worsening shortness of breath at night. She states she called her primary care provider and told to the emergency department. She states she's been having shortness of breath for one week, is intermittent and comes and goes ho wever she feels that it is getting worse. She states she does give chest pain, she does have heartburn however her chest pain yesterday did worsen and she describes a different than her typical heartburn. She describes the chest pain as a tightness. It is worse with exertion. Non radiating. Associated with shortness of breath. Patient recently underwent a Lexiscan stress test on 04/11/2021 which revealed stress induced ischemia lateral wall of the left ventricle difficult to exclude. Patient was referred to Dr. Pineda. Patient saw Dr. Pineda in the office. Coronary angiogram was recommended which was scheduled yesterday 06/27, however patient was in the emergency department procedure was canceled. DIAGNOSTICS EKG reveals sinus rhythm, heart rate 79, prolonged QT QTc 492., no significant ST-T wave abnormalities. Telemetry tracings indicate sinus mechanism heart rate 70s to 80s.. Most recent echocardiogram 06/2019 with an EF of 55-60%, mild concentric left ventricular hypertrophy. Chest xray no acute cardiopulmonary process Laboratory reviewed, troponin negative 1, sodium 140, potassium 4.4, BUN 19, serum troponin 0.7, magnesium 2.0, d-dimer negative, AST 49, ALT 35, creatine kinase 144, WBC 8.7, hemoglobin 14.9, platelets 276 06/29/2021 Patient examined this morning at the bedside. Patient is status post cardiac catheterization with Dr. Pineda revealing normal coronary arteries. Echocardiogram completed reveals ejection fraction 55-60%. Mild tricuspid re gurgitation. Patient denies chest pain or pressure. She denies shortness of breath at rest, but reports dyspnea with exertion which she states is her baseline. Blood pressure 130/70. Telemetry reveals sinus mechanism with a heart rate in the 70s. She is on 2 L nasal cannula with oxygen saturations greater than 92%. She is afebrile. PHYSICAL EXAM: VITAL SIGNS: Reviewed. GENERAL: Well-developed in no acute distress. NECK: Supple. No JVD or thyromegaly LUNGS: Respirations even and unlabored. Lungs essentially clear to auscultation bilaterally. HEART: Regular rate and rhythm. S1 and S2 heard. EXTREMITIES: Normal range of motion. No clubbing or cyanosis. Peripheral pulses intact. No lower extremity edema. Right radial cath site with pulse present ASSESSMENT: Chest pain, with recent abnormal Lexiscan stress test, s/p cardiac cath revealin g normal coronary arteries Type 2 diabetes Hypertension Dyslipidemia COPD Asthma Obesity PLAN: Continue current cardiac medications Patient is stable for discharge home today from a cardiac standpoint She is to follow up outpatient with Dr. Pineda Nurse practitioner note has been reviewed by physician. Signing provider agrees with the documented findings, assessment, and plan of care. Objective - Vital Signs Vital signs: Vital Signs Temp 97.6 F 06/29/21 08:31 Pulse 86 06/29/21 08:31 Resp 16 06/29/21 08:31 BP 130/70 06/29/21 08:31 Pulse Ox 98 06/29/21 08:31 Intake & Output 06/28/21 06/29/21 06/29/21 18:59 06:59 18:59 Intake Total 50 273 Balance 50 273 Intake: IV 50 Oral 273 Other: # Voids 1 1 # Bowel Movements 1 - Labs CBC & Chem 7: 06/29/21 04:58 06/29/21 04:58 Labs: Abnormal Lab Results - Last 24 Hours (Table) 06/28/21 06/28/21 06/28/21 Range/Units 11:22 17:27 19:59 WBC (3.8-10.6) k/uL Neutrophils # (1.3-7.7) k/uL BUN (7-17) mg/dL Glucose (74-99) mg/dL POC Glucose (mg/dL) 178 H 179 H 201 H (75-99) mg/dL 06/29/21 06/29/21 06/29/21 Range/Units 04:58 04:58 07:37 WBC 15.7 H (3.8-10.6) k/uL Neutrophils # 13.4 H (1.3-7.7) k/uL BUN 19 H (7-17) mg/dL Glucose 149 H (74-99) mg/dL POC Glucose (mg/dL) 151 H (75-99) mg/dL
[2021-06-29 11:42] VITALS: PULSE 80
[2021-06-29 11:51] LABS: Glucose,Whole Blood 230 mg/dL (75-99)
== END 2021-06-29 13:45 | disposition home or self-care (01) | DRG 191 ==
LOC: EC 04:46 → 1SOBS 06:41 → 6NMEDSUR 16:20 → OBSVTOIN 06-28 14:20
PROVIDERS: ADMIT Family Medicine; ATTEND Family Medicine
PROC: B2111ZZ Fluoroscopy of Multiple Coronary Arteries using Low Osmolar Contrast (ICD-10-PCS; principal; 2021-06-28 10:50)
DX: J44.1 Chronic obstructive pulmonary disease with (acute) exacerbation (principal); Z68.43 Body mass index [BMI] 50.0-59.9, adult; G21.9 Secondary parkinsonism, unspecified; E66.01 Morbid (severe) obesity due to excess calories; E03.9 Hypothyroidism, unspecified; E11.9 Type 2 diabetes mellitus without complications; E78.5 Hyperlipidemia, unspecified; G25.81 Restless legs syndrome; R07.89 Other chest pain; I11.9 Hypertensive heart disease without heart failure; M06.9 Rheumatoid arthritis, unspecified; G43.909 Migraine, unspecified, not intractable, without status migrainosus; G47.30 Sleep apnea, unspecified; K44.9 Diaphragmatic hernia without obstruction or gangrene; M19.90 Unspecified osteoarthritis, unspecified site; F41.8 Other specified anxiety disorders; R09.02 Hypoxemia; J45.40 Moderate persistent asthma, uncomplicated; Z79.51 Long term (current) use of inhaled steroids; Z79.82 Long term (current) use of aspirin; Z79.84 Long term (current) use of oral hypoglycemic drugs; Z79.890 Hormone replacement therapy; Z79.899 Other long term (current) drug therapy; Z90.710 Acquired absence of both cervix and uterus; Z96.653 Presence of artificial knee joint, bilateral; Z88.0 Allergy status to penicillin; Z53.9 Procedure and treatment not carried out, unspecified reason
CPT/HCPCS: 36415; 71045; 80048; 80053; 82550; 83605; 83735; 83880; 84484; 85025; 85379; 85610; 85730; 93005; 93306; 93454; 94640; 96361; 96374; 99285

== ENCOUNTER 2021-12-13 12:15 | Emergency (ER) | payer MEDICARE, OTHER ==
[2021-12-13] MEDS ORDERED: SODIUM CHLORIDE 0.9% 1,000 ML IV STA (12:30)
[2021-12-13] MEDS ORDERED: IPRATROPIUM 0.5 MG/2.5 ML NEBU INHALATION STA (12:30)
[2021-12-13] MEDS ORDERED: ALBUTEROL NEBULIZED 2.5 MG/3 ML INHALATION STA (12:30)
[2021-12-13] MEDS ORDERED: methylPREDNISolone SOD SUCCI 125 MG/2 ML VIAL IV STA (12:30)
[2021-12-13 12:36] VITALS: TEMP 98.3
--- NOTE | 2021-12-13 12:45 | ED ---
General Adult HPI - General Chief complaint: Shortness of Breath Stated complaint: PATRICK Time Seen by Provider: 12/13/21 12:30 Source: patient, RN notes reviewed, old records reviewed Mode of arrival: ambulatory Limitations: no limitations - History of Present Illness Initial comments: This is a 61-year-old female who presents emergency Department complaining of difficulty breathing which started yesterday. Patient states she was exposed to a cousin of her head cold in and that made her concerned because she developed a dry cough so she decided come to the emergency department. Patient states when she stopped walking around she has a little shortness of breath but not much per patient denies any chest pain or palpitations. Patient denies any fever chills per patient denies a loss of taste or smell. Patient states she it was a little nauseated earlier and might of had a little diarrhea earlier. Patient states he symptoms started last night when she had exposure to her cousin. Patient denies any abdominal pain patient denies any swelling to the legs or calf tenderness. - Related Data Home Medications Medication Instructions Recorded Confirmed Budesonide-Formot 160-4.5 Mcg 2 puff INHALATION RT-BID 06/04/15 12/13/21 [Symbicort 160-4.5 Mcg Inhaler] Levothyroxine Sodium [Levoxyl] 100 mcg PO DAILY 06/04/15 12/13/21 Loratadine [Claritin] 10 mg PO DAILY 06/04/15 12/13/21 Mirtazapine [Remeron] 15 mg PO HS 06/04/15 12/13/21 Montelukast Sodium [Singulair] 10 mg PO HS 06/04/15 12/13/21 PARoxetine HCL [Paxil] 20 mg PO DAILY 06/04/15 12/13/21 Potassium Chloride ER [K-Dur 10] 10 meq PO DAILY 06/04/15 12/13/21 Topiramate [Topamax] 50 mg PO HS 06/04/15 12/13/21 rOPINIRole HCL [Requip] 1 mg PO DAILY 06/04/15 12/13/21 Omeprazole 40 mg PO BID 10/23/17 12/13/21 amLODIPine BESYLATE [Norvasc] 5 mg PO DAILY 10/23/17 12/13/21 atenoloL [Tenormin] 25 mg PO DAILY 10/23/17 12/13/21 Docusate [Colace] 100 mg PO BID 10/22/18 12/13/21 Furosemide [Lasix] 20 mg PO DAILY 10/22/18 12/13/21 buPROPion HCL [Wellbutrin SR] 150 mg PO BID 10/22/18 12/13/21 busPIRone HCl [Buspar] 10 mg PO DAILY 10/22/18 12/13/21 hydrALAZINE HCL [Apresoline] 50 mg PO BID 10/22/18 12/13/21 Dapagliflozin Propanediol [Farxiga] 5 mg PO DAILY 01/15/20 12/13/21 Diclofenac Sodium [Voltaren] 50 mg PO TID 01/15/20 12/13/21 Sucralfate [Carafate] 1 gm PO AC-TID 06/29/20 12/13/21 Aspirin [Adult Low Dose Aspirin EC] 81 mg PO DAILY 06/09/21 12/13/21 Albuterol Nebulized [Ventolin 2.5 mg INHALATION RT-QID 06/27/21 12/13/21 Nebulized] Butalb/Acetaminophen/Caffeine 1 tab PO DAILY PRN 06/27/21 12/13/21 [Fioricet 50-325-40] Cholecalciferol [Vitamin D3 (25 50 mcg PO DAILY 06/27/21 12/13/21 Mcg = 1000 Iu)] Fluticasone Nasal [place] [Flonase 1 spray EA NOSTRIL DAILY PRN 06/27/21 12/13/21 Nasal [place]] Meclizine [Antivert] 25 mg PO BID 06/27/21 12/13/21 Semaglutide [Ozempic] 1 mg SQ TU 06/27/21 12/13/21 Tiotropium [place] [Spiriva] 1 cap INHALATION RT-DAILY 06/27/21 12/13/21 Tolterodine ER [Detrol LA] 4 mg PO DAILY 06/27/21 12/13/21 Nitroglycerin Sl Tabs [Nitrostat] 0.4 mg SUBLINGUAL Q5M PRN 12/13/21 12/13/21 Previous Rx's Medication Instructions Recorded Atorvastatin [Lipitor] 40 mg PO DAILY 90 Days #90 tab 06/29/21 Allergies Allergy/AdvReac Type Severity Reaction Status Date / Time Penicillins Allergy Rash/Hives Verified 12/13/21 13:21 Review of Systems ROS Statement: Those systems with pertinent positive or pertinent negative responses have been documented in the HPI. ROS Other: All systems not noted in ROS Statement are negative. Past Medical History Past Medical History: Asthma, COPD, Diabetes Mellitus, GERD/Reflux, Hyperlipidemia, Hypertension, Osteoarthritis (OA), Rheumatoid Arthritis (RA), Sleep Apnea/CPAP/BIPAP, Thyroid Disorder Additional Past Medical History / Comment(s): hypothyroidism, restless leg syndrome, migraine headaches (Neurontin Rx prescribed for these) , HIATAL HERNIA, HAS SPOT IN BACK OF HEAD FROM PIECE OF SKULL BEING REMOVED. 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 EGD Past Anesthesia/Blood Transfusion Reactions: No Reported Reaction Past Psychological History: Anxiety, Depression Smoking Status: Never smoker Past Alcohol Use History: None Reported Past Drug Use History: None Reported - Past Family History Sister(s) Family Medical History: Deep Vein Thrombosis (DVT) Additional Family Medical History / Comment(s): SISTER HAD BLOOD CLOT IN LT ARM General Exam - General Exam Comments Initial Comments: GENERAL: Patient is well-developed and well-nourished. Patient is nontoxic and well-hy drated and is in mild distress. ENT: Neck is soft and supple. No significant lymphadenopathy is noted. Oropharynx is clear. Moist mucous membranes. Neck has full range of motion without eliciting any pain. EYES: The sclera were anicteric and conjunctiva were pink and moist. Extraocular movements were intact and pupils were equal round and reactive to light. Eyelids were unremarkable. PULMONARY: Unlabored respirations. Good breath sounds bilaterally. No audible rales rhonchi or wheezing was noted. CARDIOVASCULAR: There is a regular rate and rhythm without any murmurs gallops or rubs. ABDOMEN: Soft and nontender with normal bowel sounds. SKIN: Skin is clear with no lesions or rashes and otherwise unremarkable. NEUROLOGIC: Patient is alert and oriented x3. Cranial nerves II through XII are grossly intact. Motor and sensory are also intact. Normal speech, volume and content. Symmetrical smile. MUSCULOSKELETAL: Normal extremities with adequate strength and full range of motion. LYMPHATICS: No significant lymphadenopathy is noted PSYCHIATRIC: Normal psychiatric evaluation. Limitations: no limitations Course Vital Signs 12/13/21 12/13/21 12:28 13:05 Temperature 98.3 F Pulse Rate 83 Respiratory 18 22 Rate Blood Pressure 123/67 O2 Sat by Pulse 95 Oximetry Medical Decision Making - Medical Decision Making EKG shows normal sinus rhythm at 81 bpm SC interval 194 Baron is 94 QT interval 374 QTC is 434 patient's EKG shows no ST segment elevation or depression. Chest x-ray shows no acute abnormality. Patient qualified for monoclonal antibodies and received monoclonal antibodies in the emergency department. - Lab Data Result diagrams: 12/13/21 13:05 12/13/21 13:05 Lab Results 12/13/21 12/13/21 12/13/21 Range/Units 12:40 13:05 13:05 WBC 9.1 (3.8-10.6) k/uL RBC 4.65 (3.80-5.40) m/uL Hgb 14.7 (11.4-16.0) gm/dL Hct 45.3 (34.0-46.0) % MCV 97.3 (80.0-100.0) fL MCH 31.6 (25.0-35.0) pg MCHC 32.5 (31.0-37.0) g/dL RDW 13.1 (11.5-15.5) % Plt Count 255 (150-450) k/uL MPV 6.4 Neutrophils % 83 % Lymphocytes % 9 % Monocytes % 5 % Eosinophils % 2 % Basophils % 1 % Neutrophils # 7.5 (1.3-7.7) k/uL Lymphocytes # 0.8 L (1.0-4.8) k/uL Monocytes # 0.4 (0-1.0) k/uL Eosinophils # 0.2 (0-0.7) k/uL Basophils # 0.1 (0-0.2) k/uL PT 10.5 (9.0-12.0) sec INR 1.0 (<1.2) APTT 23.3 (22.0-30.0) sec Sodium (137-145) mmol/L Potassium (3.5-5.1) mmol/L Chloride (98-107) mmol/L Carbon Dioxide (22-30) mmol/L Anion Gap mmol/L BUN (7-17) mg/dL Creatinine (0.52-1.04) mg/dL Est GFR (CKD-EPI)AfAm (>60 ml/min/1.73 sqM) Est GFR (CKD-EPI)NonAf (>60 ml/min/1.73 sqM) Glucose (74-99) mg/dL Plasma Lactic Acid [place] (0.7-2.0) mmol/L Calcium (8.4-10.2) mg/dL Magnesium (1.6-2.3) mg/dL Total Bilirubin (0.2-1.3) mg/dL AST (14-36) U/L ALT (4-34) U/L Alkaline Phosphatase (38-126) U/L Troponin I (0.000-0.034) ng/mL NT-Pro-B Natriuret Pep pg/mL Total Protein (6.3-8.2) g/dL Albumin (3.5-5.0) g/dL Coronavirus (PCR) Detected A (Not Detectd) 12/13/21 12/13/21 12/13/21 Range/Units 13:05 13:05 13:05 WBC (3.8-10.6) k/uL RBC (3.80-5.40) m/uL Hgb (11.4-16.0) gm/dL Hct (34.0-46.0) % MCV (80.0-100.0) fL MCH (25.0-35.0) pg MCHC (31.0-37.0) g/dL RDW (11.5-15.5) % Plt Count (150-450) k/uL MPV Neutrophils % % Lymphocytes % % Monocytes % % Eosinophils % % Basophils % % Neutrophils # (1.3-7.7) k/uL Lymphocytes # (1.0-4.8) k/uL Monocytes # (0-1.0) k/uL Eosinophils # (0-0.7) k/uL Basophils # (0-0.2) k/uL PT (9.0-12.0) sec INR (<1.2) APTT (22.0-30.0) sec Sodium 142 (137-145) mmol/L Potassium 4.1 (3.5-5.1) mmol/L Chloride 102 (98-107) mmol/L Carbon Dioxide 29 (22-30) mmol/L Anion Gap 11 mmol/L BUN 20 H (7-17) mg/dL Creatinine 0.84 (0.52-1.04) mg/dL Est GFR (CKD-EPI)AfAm 87 (>60 ml/min/1.73 sqM) Est GFR (CKD-EPI)NonAf 75 (>60 ml/min/1.73 sqM) Glucose 97 (74-99) mg/dL Plasma Lactic Acid [place] (0.7-2.0) mmol/L Calcium 8.7 (8.4-10.2) mg/dL Magnesium 1.8 (1.6-2.3) mg/dL Total Bilirubin 0.4 (0.2-1.3) mg/dL AST 54 H (14-36) U/L ALT 45 H (4-34) U/L Alkaline Phosphatase 103 (38-126) U/L Troponin I <0.012 (0.000-0.034) ng/mL NT-Pro-B Natriuret Pep 69 pg/mL Total Protein 7.2 (6.3-8.2) g/dL Albumin 4.2 (3.5-5.0) g/dL Coronavirus (PCR) (Not Detectd) 12/13/21 Range/Units 13:13 WBC (3.8-10.6) k/uL RBC (3.80-5.40) m/uL Hgb (11.4-16.0) gm/dL Hct (34.0-46.0) % MCV (80.0-100.0) fL MCH (25.0-35.0) pg MCHC (31.0-37.0) g/dL RDW (11.5-15.5) % Plt Count (150-450) k/uL MPV Neutrophils % % Lymphocytes % % Monocytes % % Eosinophils % % Basophils % % Neutrophils # (1.3-7.7) k/uL Lymphocytes # (1.0-4.8) k/uL Monocytes # (0-1.0) k/uL Eosinophils # (0-0.7) k/uL Basophils # (0-0.2) k/uL PT (9.0-12.0) sec INR (<1.2) APTT (22.0-30.0) sec Sodium (137-145) mmol/L Potassium (3.5-5.1) mmol/L Chloride (98-107) mmol/L Carbon Dioxide (22-30) mmol/L Anion Gap mmol/L BUN (7-17) mg/dL Creatinine (0.52-1.04) mg/dL Est GFR (CKD-EPI)AfAm (>60 ml/min/1.73 sqM) Est GFR (CKD-EPI)NonAf (>60 ml/min/1.73 sqM) Glucose (74-99) mg/dL Plasma Lactic Acid [place] 1.7 (0.7-2.0) mmol/L Calcium (8.4-10.2) mg/dL Magnesium (1.6-2.3) mg/dL Total Bilirubin (0.2-1.3) mg/dL AST (14-36) U/L ALT (4-34) U/L Alkaline Phosphatase (38-126) U/L Troponin I (0.000-0.034) ng/mL NT-Pro-B Natriuret Pep pg/mL Total Protein (6.3-8.2) g/dL Albumin (3.5-5.0) g/dL Coronavirus (PCR) (Not Detectd) Disposition Clinical Impression: COVID-19 Disposition: HOME SELF-CARE Condition: Good Instructions (If sedation given, give patient instructions): Coronavirus Disease 2019 (COVID-19) Is patient prescribed a controlled substance at d/c from ED?: No Referrals: Hang Young MD [Primary Care Provider] - 1-2 days Time of Disposition: 14:26
--- NOTE | 2021-12-13 13:00 | XR ---
EXAMINATION TYPE: XR chest 2V DATE OF EXAM: 12/13/2021 COMPARISON: 06/27/2021 HISTORY: Shortness of breath TECHNIQUE: Frontal and lateral views of the chest are obtained. FINDINGS: Scattered senescent parenchymal changes noted. Hyperinflation compatible with COPD. No evidence for infiltrate. No evidence for atelectasis. Heart size is stable. Mediastinal structures are stable and grossly unremarkable. No evidence for hilar prominence. Degenerative changes dorsal spine. IMPRESSION: 1. No evidence for acute pulmonary disease.
[2021-12-13 13:21] LABS: Basophils # (A) 0.1 k/uL (0-0.2); Basophils % (A) 1 %; Eosinophils # (A) 0.2 k/uL (0-0.7); Eosinophils % (A) 2 %; HCT 45.3 % (34.0-46.0); HGB 14.7 gm/dL (11.4-16.0); Lymphocytes # (A) 0.8 k/uL (1.0-4.8); Lymphocytes % (A) 9 %; MCH 31.6 pg (25.0-35.0); MCHC 32.5 g/dL (31.0-37.0); MCV 97.3 fL (80.0-100.0); Mean Platelet Volume 6.4; Monocytes # (A) 0.4 k/uL (0-1.0); Monocytes % (A) 5 %; Neutrophils # (A) 7.5 k/uL (1.3-7.7); Neutrophils % (A) 83 %; Platelet Count 255 k/uL (150-450); RBC 4.65 m/uL (3.80-5.40); RDW 13.1 % (11.5-15.5); WBC 9.1 k/uL (3.8-10.6)
[2021-12-13 13:32] LABS: Albumin 4.2 g/dL (3.5-5.0); Calcium 8.7 mg/dL (8.4-10.2); Magnesium 1.8 mg/dL (1.6-2.3); Potassium 4.1 mmol/L (3.5-5.1); Total Bilirubin 0.4 mg/dL (0.2-1.3); Total Protein 7.2 g/dL (6.3-8.2)
[2021-12-13 13:37] LABS: Partial Thromboplastin Time 23.3 sec (22.0-30.0); Prothrombin Time 10.5 sec (9.0-12.0)
[2021-12-13] MEDS ORDERED: SOTROVIMAB (EUA) 500 MG in SODIUM CHLORIDE 0.9% 100 ML IVPB ONE (14:30)
[2021-12-13] MEDS ORDERED: SODIUM CHLORIDE 0.9% 50 ML IVPB ONE (15:00)
[2021-12-13 16:42] VITALS: BP 122/69; PULSE 88; RESP 18
== END 2021-12-13 16:53 | disposition home or self-care (01) ==
LOC: EC 12:15
DX: U07.1 COVID-19 (principal); J44.9 Chronic obstructive pulmonary disease, unspecified; E11.9 Type 2 diabetes mellitus without complications; K21.9 Gastro-esophageal reflux disease without esophagitis; E78.5 Hyperlipidemia, unspecified; I10 Essential (primary) hypertension; M19.90 Unspecified osteoarthritis, unspecified site; E07.9 Disorder of thyroid, unspecified; F41.9 Anxiety disorder, unspecified; F32.A Depression, unspecified; Z79.82 Long term (current) use of aspirin; Z88.0 Allergy status to penicillin; Z90.710 Acquired absence of both cervix and uterus
CPT/HCPCS: 99285; 36415; 93005; 83880; 80053; 83605; 83735; 84484; 85025; 85610; 85730; 87635; 71046; Q0247

== ENCOUNTER 2022-01-09 19:32 | Emergency (ER) | payer MEDICARE, OTHER ==
[2022-01-09 19:39] VITALS: TEMP 98
--- NOTE | 2022-01-09 20:07 | XR ---
EXAMINATION TYPE: XR humerus RT DATE OF EXAM: 01/09/2022 7:56 PM INDICATION: Patient age:Female; 62 years old; Reason for study: Fall; COMPARISON: None TECHNIQUE: The right humerus was examined in AP, lateral projections. FINDINGS: Well-corticated osteophytes noted involving the lateral epicondyle and the coronoid process . No evidence of acute osseous pathology, joint dislocation, or soft tissue swelling. The remaining p ortions of the visualized chest are unremarkable. IMPRESSION: No convincing evidence of acute osseous pathology.
--- NOTE | 2022-01-09 20:12 | ED ---
General Adult HPI - General Chief complaint: Extremity Injury, Upper Stated complaint: RT arm pain Time Seen by Provider: 01/09/22 19:35 Source: patient, EMS, RN notes reviewed, old records reviewed Mode of arrival: EMS Limitations: altered mental status (Patient appears intellectually delayed) - History of Present Illness Initial comments: This is a 62-year-old female presents emergency department stating that she fell 3 weeks ago and hurt her right mid upper arm. Patient states she fell again the other day and hurt again. Patient states on Saturday she was reaching for some paper and her arm continues to hurt so she decided come to the emergency department today. Patient denies any head trauma or neck pain. Patient denies numbness weakness. Patient denies any pain over clavicles. Patient denies any chest pain or back pain. Patient denies any lower extremity pain. Patient denies any elbow pain shoulder pain forearm pain or hand pain. - Related Data Home Medications Medication Instructions Recorded Confirmed Budesonide-Formot 160-4.5 Mcg 2 puff INHALATION RT-BID 06/04/15 12/13/21 [Symbicort 160-4.5 Mcg Inhaler] Levothyroxine Sodium [Levoxyl] 100 mcg PO DAILY 06/04/15 12/13/21 Loratadine [Claritin] 10 mg PO DAILY 06/04/15 12/13/21 Mirtazapine [Remeron] 15 mg PO HS 06/04/15 12/13/21 Montelukast Sodium [Singulair] 10 mg PO HS 06/04/15 12/13/21 PARoxetine HCL [Paxil] 20 mg PO DAILY 06/04/15 12/13/21 Potassium Chloride ER [K-Dur 10] 10 meq PO DAILY 06/04/15 12/13/21 Topiramate [Topamax] 50 mg PO HS 06/04/15 12/13/21 rOPINIRole HCL [Requip] 1 mg PO DAILY 06/04/15 12/13/21 Omeprazole 40 mg PO BID 10/23/17 12/13/21 amLODIPine BESYLATE [Norvasc] 5 mg PO DAILY 10/23/17 12/13/21 atenoloL [Tenormin] 25 mg PO DAILY 10/23/17 12/13/21 Docusate [Colace] 100 mg PO BID 10/22/18 12/13/21 Furosemide [Lasix] 20 mg PO DAILY 10/22/18 12/13/21 buPROPion HCL [Wellbutrin SR] 150 mg PO BID 10/22/18 12/13/21 busPIRone HCl [Buspar] 10 mg PO DAILY 10/22/18 12/13/21 hydrALAZINE HCL [Apresoline] 50 mg PO BID 10/22/18 12/13/21 Dapagliflozin Propanediol [Farxiga] 5 mg PO DAILY 01/15/20 12/13/21 Diclofenac Sodium [Voltaren] 50 mg PO TID 01/15/20 12/13/21 Sucralfate [Carafate] 1 gm PO AC-TID 06/29/20 12/13/21 Aspirin [Adult Low Dose Aspirin EC] 81 mg PO DAILY 06/09/21 12/13/21 Albuterol Nebulized [Ventolin 2.5 mg INHALATION RT-QID 06/27/21 12/13/21 Nebulized] Butalb/Acetaminophen/Caffeine 1 tab PO DAILY PRN 06/27/21 12/13/21 [Fioricet 50-325-40] Cholecalciferol [Vitamin D3 (25 50 mcg PO DAILY 06/27/21 12/13/21 Mcg = 1000 Iu)] Fluticasone Nasal [place] [Flonase 1 spray EA NOSTRIL DAILY PRN 06/27/21 12/13/21 Nasal [place]] Meclizine [Antivert] 25 mg PO BID 06/27/21 12/13/21 Semaglutide [Ozempic] 1 mg SQ TU 06/27/21 12/13/21 Tiotropium [place] [Spiriva] 1 cap INHALATION RT-DAILY 06/27/21 12/13/21 Tolterodine ER [Detrol [place]] 4 mg PO DAILY 06/27/21 12/13/21 Nitroglycerin Sl Tabs [Nitrostat] 0.4 mg SUBLINGUAL Q5M PRN 12/13/21 12/13/21 Previous Rx's Medication Instructions Recorded Atorvastatin [Lipitor] 40 mg PO DAILY 90 Days #90 tab 06/29/21 Ibuprofen [Motrin] 600 mg PO Q6HR PRN #20 tab 01/09/22 Allergies Allergy/AdvReac Type Severity Reaction Status Date / Time Penicillins Allergy Rash/Hives Verified 01/09/22 19:39 Review of Systems ROS Statement: Those systems with pertinent positive or pertinent negative responses have been documented in the HPI. ROS Other: All systems not noted in ROS Statement are negative. Past Medical History Past Medical History: Asthma, COPD, Diabetes Mellitus, GERD/Reflux, Hyperlipidemia, Hypertension, Osteoarthritis (OA), Rheumatoid Arthritis (RA), Sleep Apnea/CPAP/BIPAP, Thyroid Disorder Additional Past Medical History / Comment(s): hypothyroidism, restless leg syndrome, migraine headaches (Neurontin Rx prescribed for these) , HIATAL HERNIA, HAS SPOT IN BACK OF HEAD FROM PIECE OF SKULL BEING REMOVED. 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 EGD Past Anesthesia/Blood Transfusion Reactions: No Reported Reaction Past Psychological History: Anxiety, Depression Smoking Status: Never smoker Past Alcohol Use History: None Reported Past Drug Use History: None Reported - Past Family History Sister(s) Family Medical History: Deep Vein Thrombosis (DVT) Additional Family Medical History / Comment(s): SISTER HAD BLOOD CLOT IN LT ARM General Exam - General Exam Comments Initial Comments: GENERAL Patient is well-developed and well-nourished. Patient is in mild distress. EYES Patient's pupils are equal and round. Extraocular motion is intact SKIN Unremarkable NEURO The patient is alert and oriented 3 PYSCH Patient has normal interpersonal interactions. MUSCULOSKELETAL Patient has some tenderness in the lateral aspect of the shoulder, there is no clavicular tenderness or elbow tenderness there is no tenderness of the forearm and hand or fingers. Limitations: no limitations Course Vital Signs 01/09/22 19:35 Temperature 98.0 F Pulse Rate 91 Respiratory 18 Rate Blood Pressure 143/73 O2 Sat by Pulse 95 Oximetry Medical Decision Making - Medical Decision Making X-ray shows no acute abnormality. Patient has some difficulty lifting the arm is eliciting some pain difficult to ascertain whether a rotator cuff injury are not patient does have weak external rotation Disposition Clinical Impression: Rotator cuff (capsule) sprain Disposition: HOME SELF-CARE Condition: Good Prescriptions: Ibuprofen [Motrin] 600 mg PO Q6HR PRN #20 tab PRN Reason: For pain Is patient prescribed a controlled substance at d/c from ED?: No Referrals: Hang Young MD [Primary Care Provider] - 1-2 days Time of Disposition: 20:12
[2022-01-09 20:33] VITALS: BP 122/53; PULSE 90; RESP 16
== END 2022-01-09 20:34 | disposition home or self-care (01) ==
LOC: EC 19:32
DX: S43.421A Sprain of right rotator cuff capsule, initial encounter (principal); J44.9 Chronic obstructive pulmonary disease, unspecified; E11.9 Type 2 diabetes mellitus without complications; K21.9 Gastro-esophageal reflux disease without esophagitis; E78.5 Hyperlipidemia, unspecified; I10 Essential (primary) hypertension; M06.9 Rheumatoid arthritis, unspecified; E07.9 Disorder of thyroid, unspecified; F41.9 Anxiety disorder, unspecified; F32.A Depression, unspecified; Z79.82 Long term (current) use of aspirin; Z88.0 Allergy status to penicillin; Z90.710 Acquired absence of both cervix and uterus; Z96.653 Presence of artificial knee joint, bilateral; W01.0XXA Fall on same level from slipping, tripping and stumbling without subsequent striking against object, initial encounter
CPT/HCPCS: 99283

== ENCOUNTER 2022-05-05 15:02 | Emergency (ER) | payer MEDICARE, OTHER ==
[2022-05-05 15:52] VITALS: TEMP 97.8
[2022-05-05] MEDS ORDERED: CIPROFLOXACIN HCL 250 MG TAB PO STA (19:18)
--- NOTE | 2022-05-05 19:26 | ED ---
ENT HPI - General Chief complaint: ENT Stated complaint: L ear pain Time Seen by Provider: 05/05/22 18:40 Source: patient Mode of arrival: ambulatory Limitations: no limitations - History of Present Illness Initial comments: 62-year-old female presents to the emergency department for left ear infection. The patient arrives with a warm, swollen and crusted left pinna. States that she has had an infection 3 days. Patient not currently on any treatment. Denies any hearing changes. No postauricular pain. No vision changes. No other alleviating, precipitating or modifying factors - Related Data Home Medications Medication Instructions Recorded Confirmed Budesonide-Formot 160-4.5 Mcg 2 puff INHALATION RT-BID 06/04/15 12/13/21 [Symbicort 160-4.5 Mcg Inhaler] Levothyroxine Sodium [Levoxyl] 100 mcg PO DAILY 06/04/15 12/13/21 Loratadine [Claritin] 10 mg PO DAILY 06/04/15 12/13/21 Mirtazapine [Remeron] 15 mg PO HS 06/04/15 12/13/21 Montelukast Sodium [Singulair] 10 mg PO HS 06/04/15 12/13/21 PARoxetine HCL [Paxil] 20 mg PO DAILY 06/04/15 12/13/21 Potassium Chloride ER [K-Dur 10] 10 meq PO DAILY 06/04/15 12/13/21 Topiramate [Topamax] 50 mg PO HS 06/04/15 12/13/21 rOPINIRole HCL [Requip] 1 mg PO DAILY 06/04/15 12/13/21 Omeprazole 40 mg PO BID 10/23/17 12/13/21 amLODIPine BESYLATE [Norvasc] 5 mg PO DAILY 10/23/17 12/13/21 atenoloL [Tenormin] 25 mg PO DAILY 10/23/17 12/13/21 Docusate [Colace] 100 mg PO BID 10/22/18 12/13/21 Furosemide [Lasix] 20 mg PO DAILY 10/22/18 12/13/21 buPROPion HCL [Wellbutrin SR] 150 mg PO BID 10/22/18 12/13/21 busPIRone HCl [Buspar] 10 mg PO DAILY 10/22/18 12/13/21 hydrALAZINE HCL [Apresoline] 50 mg PO BID 10/22/18 12/13/21 Dapagliflozin Propanediol [Farxiga] 5 mg PO DAILY 01/15/20 12/13/21 Diclofenac Sodium [Voltaren] 50 mg PO TID 01/15/20 12/13/21 Sucralfate [Carafate] 1 gm PO AC-TID 06/29/20 12/13/21 Aspirin [Adult Low Dose Aspirin EC] 81 mg PO DAILY 06/09/21 12/13/21 Albuterol Nebulized [Ventolin 2.5 mg INHALATION RT-QID 06/27/21 12/13/21 Nebulized] Butalb/Acetaminophen/Caffeine 1 tab PO DAILY PRN 06/27/21 12/13/21 [Fioricet 50-325-40] Cholecalciferol [Vitamin D3 (25 50 mcg PO DAILY 06/27/21 12/13/21 Mcg = 1000 Iu)] Fluticasone Nasal [place] [Flonase 1 spray EA NOSTRIL DAILY PRN 06/27/21 12/13/21 Nasal [place]] Meclizine [Antivert] 25 mg PO BID 06/27/21 12/13/21 Semaglutide [Ozempic] 1 mg SQ TU 06/27/21 12/13/21 Tiotropium [place] [Spiriva] 1 cap INHALATION RT-DAILY 06/27/21 12/13/21 Tolterodine ER [Detrol LA] 4 mg PO DAILY 06/27/21 12/13/21 Nitroglycerin Sl Tabs [Nitrostat] 0.4 mg SUBLINGUAL Q5M PRN 12/13/21 12/13/21 Previous Rx's Medication Instructions Recorded Atorvastatin [Lipitor] 40 mg PO DAILY 90 Days #90 tab 06/29/21 Ibuprofen [Motrin] 600 mg PO Q6HR PRN #20 tab 01/09/22 Ciprofloxacin HCl [Cipro] 750 mg PO Q12H #14 tab 05/05/22 Allergies Allergy/AdvReac Type Severity Reaction Status Date / Time Penicillins Allergy Rash/Hives Verified 05/05/22 15:52 Review of Systems ROS Statement: Those systems with pertinent positive or pertinent negative responses have been documented in the HPI. ROS Other: All systems not noted in ROS Statement are negative. Past Medical History Past Medical History: Asthma, COPD, Diabetes Mellitus, GERD/Reflux, Hyperlipidemia, Hypertension, Osteoarthritis (OA), Rheumatoid Arthritis (RA), Sleep Apnea/CPAP/BIPAP, Thyroid Disorder Additional Past Medical History / Comment(s): hypothyroidism, restless leg syndrome, migraine headaches (Neurontin Rx prescribed for these) , HIATAL HERNIA, HAS SPOT IN BACK OF HEAD FROM PIECE OF SKULL BEING REMOVED. 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 EGD Past Anesthesia/Blood Transfusion Reactions: No Reported Reaction Past Psychological History: Anxiety, Depression Smoking Status: Never smoker Past Alcohol Use History: None Reported Past Drug Use History: None Reported - Past Family History Sister(s) Family Medical History: Deep Vein Thrombosis (DVT) Additional Family Medical History / Comment(s): SISTER HAD BLOOD CLOT IN LT ARM General Exam Limitations: no limitations Course Vital Signs 05/05/22 05/05/22 15:50 19:39 Temperature 97.8 F Pulse Rate 72 84 Respiratory 16 18 Rate Blood Pressure 124/63 114/84 O2 Sat by Pulse 95 98 Oximetry Medical Decision Making - Medical Decision Making Upon arrival patient is placed in room 17. Physical exam demonstrates a left costochondritis. Patient given dose of Cipro. Will be discharged home on Cipro. States that she can follow up with her primary care doctor on Saturday for reevaluation. Instructed that if she has any new or worsening symptoms or her infection does not appear to be getting any better on the antibiotics that she needs to return for IV antibiotics. Patient agreed to this and she was discharged home in stable condition. No fluctuance or signs of abscess at this time needing drainage Disposition Clinical Impression: Perichondritis and chondritis of left pinna Disposition: HOME SELF-CARE Condition: Stable Instructions (If sedation given, give patient instructions): Ear Infection (ED) Additional Instructions: Take the antibiotics as directed. You must see your primary care doctor next week to ensure that your infection is improving. If it is not, you need to return to the hospital for iv antibiotics. Prescriptions: Ciprofloxacin HCl [Cipro] 750 mg PO Q12H #14 tab Is patient prescribed a controlled substance at d/c from ED?: No Referrals: Hang Young MD [Primary Care Provider] - 1-2 days Time of Disposition: 19:26
[2022-05-05 19:39] VITALS: BP 114/84; PULSE 84; RESP 18
== END 2022-05-05 21:22 | disposition home or self-care (01) ==
LOC: EC 15:02
DX: H61.002 Unspecified perichondritis of left external ear (principal); H61.032 Chondritis of left external ear; E11.9 Type 2 diabetes mellitus without complications; I10 Essential (primary) hypertension; E78.5 Hyperlipidemia, unspecified; J44.9 Chronic obstructive pulmonary disease, unspecified; K21.9 Gastro-esophageal reflux disease without esophagitis; M06.9 Rheumatoid arthritis, unspecified; E03.9 Hypothyroidism, unspecified; F32.A Depression, unspecified; F41.9 Anxiety disorder, unspecified; Z79.890 Hormone replacement therapy; Z79.51 Long term (current) use of inhaled steroids; Z79.899 Other long term (current) drug therapy
CPT/HCPCS: 99282

== ENCOUNTER → 2022-12-03 | Outpatient (CLI) | payer MEDICARE, OTHER ==
--- NOTE | 2022-12-03 18:59 | MR ---
EXAMINATION TYPE: MR lumbar spine wo con DATE OF EXAM: 12/03/2022 COMPARISON: None HISTORY: Low back pain that radiates down legs. CONTRAST: 0 mL intravenous Gadavist. TECHNIQUE: Multiplanar, multisequence images of the lumbar spine were acquired. FINDINGS: Disc desiccation is throughout the lumbar spine. Mild diffuse narrowing of disc height is evident. L5-S1: No significant disc bulge or disc herniation. No spinal canal stenosis. No foraminal stenosi s. Mild facet hypertrophy is present.. L4-L5: Mild disc bulge anterior thecal sac contact. No AP spinal canal stenosis is present. No forami nal stenosis. Moderate facet hypertrophy is present.. L3-L4: Mild disc bulge has anterior thecal sac flattening. No AP spinal canal stenosis is present. Fa cet hypertrophy without posterior lateral thecal sac compression is present. L2-L3: Minimal disc bulge has intrathecal sac contact. No spinal canal stenosis. No foraminal steno sis. Facet hypertrophy is present without posterior lateral thecal sac compression. L1-L2: No significant disc bulge or disc herniation. No spinal canal stenosis. No foraminal stenosi s. . T12-L1: No significant disc bulge or disc herniation. No spinal canal stenosis. No foraminal stenos is. . IMPRESSION: 1. Mild disc bulging with anterior thecal sac contact L2-3 through L4-5. 2. Facet hypertrophy without significant posterior lateral thecal sac compression. 3. Diffuse disc desiccation with mild narrowing of disc height throughout the lumbar spine
== END | disposition home or self-care (01) ==
LOC: RADMRIMAIN 13:34
PROVIDERS: ATTEND Nurse Practitioner Family
DX: M47.26 Other spondylosis with radiculopathy, lumbar region (principal); M51.16 Intervertebral disc disorders with radiculopathy, lumbar region; M48.061 Spinal stenosis, lumbar region without neurogenic claudication
CPT/HCPCS: 72148

== ENCOUNTER 2023-01-31 09:18 | Day surgery (SDC) | payer MEDICARE, OTHER ==
[2023-01-31 09:34] VITALS: TEMP 97.7
[2023-01-31] MEDS ORDERED: LIDOCAINE 1% (10MG/ML) FOR IV START INTRADERMA PRN (09:37)
[2023-01-31] MEDS ORDERED: LACTATED RINGERS 1,000 ML IV SCH (09:37)
[2023-01-31 09:45] LABS: Glucose,Whole Blood 96 mg/dL (70-110)
[2023-01-31] MEDS ORDERED: MIDAZOLAM 2 MG/2 ML VIAL ONE (09:58)
[2023-01-31] MEDS ORDERED: IOPAMIDOL M200 10 ML VIAL ONE (09:58)
[2023-01-31] MEDS ORDERED: fentaNYL (PF) 50 MCG/ML 2 ML AMP ONE (09:58)
[2023-01-31] MEDS ORDERED: methylPREDNISolone ACETATE 40 MG/ML 1 ML VIAL ONE (09:58)
[2023-01-31] MEDS ORDERED: IV FLUID CONTINUATION 1,000 ML IV ONE (10:17)
--- NOTE | 2023-01-31 10:17 | P.PCN ---
Date of Procedure: 01/31/23 Procedure(s) Performed: PREOPERATIVE DIAGNOSIS: 1- Lumbar Degenerative Disc Diseases 2-Lumbar spondylosis with Facet arthropathy without myelopathy. POSTOPERATIVE DIAGNOSIS: Same as preop diagnosis. PROCEDURE 1. Lumbar epidural steroid injection under fluoroscopic guidance at the L4-5 level. (Fluoroscopy imaging was available in radiology department) 2. Lumbar epidurogram. ANESTHESIA: moderate sedation with intravenous Versed 1 mg ,and fentanyle 50 Mcg Sedation start time : 1004 Sedation end time : 1011 EBL: Minimal PROCEDURE INDICATION: The patient with low back pain and radiculitis symptoms unresponsive to conservative treatment. Fluoroscopy was used to optimize visualization of the needle placement and to maximize safety. PROCEDURE DESCRIPTION / TECHNIQUE: The patient was seen and identified in the preoperative area. Risks, benefits, complications including but not limited to infections ,bleeding ,allergic reaction to the medications ,nerve damage and not complete pain releife , and alternatives were discussed with the patient. The patient agreed to proceed with the procedure and signed the consent. IV was started, and vital signs were stable. Patient was taken to the OR and time out was completed. The patient was placed in the prone position on procedure table and a pillow was placed under the abdomen to reduce lumbar lordosis. The lumbosacral area was prepped and draped in the usual sterile fashion.ere closely monitored during the procedure. Conscious sedation was used during the procedure to decrease patients anxiety. Vital signs was monitered during the entire procedure. Using anterior-posterior fluoroscopy, the L4-5 interlaminar space was identified and the skin over this site was marked and then infiltrated with 1% lidocaine subcutaneously. Subsequently, a 20-gauge Tuohy epidural needle was inserted and advanced toward the epidural space using the ``Loss of resistance technique and guided by AP and lateral fluoroscopy. The correct needle position in the epi dural space was verified with the injection of 2 mL of the water soluble contrast dye Isovue 200 contrast and observing an excellent epidurogram with the epidural spread of the dye, after negative aspiration for blood and CSF and in the absence of paresthesias. Again after negative aspiration, a 6 ml mixture containing 40 mg of Depo-medrol ( Preservetive Free ), and 2 ml of preservative free Normal Saline, and 2 ml of preservative free lidocaine 1% solution was injected and a washout of epidurogram was seen. Needle was withdrawn intact, skin was cleansed, and bandages were applied. COMPLICATIONS: None DISPOSITION / PLANS: The patient was placed in a supine position and transferred to the recovery area in a stable condition for observation. There was no evidence of lower extremity motor or sensory deficit after the procedure. Patient was discharged from the recovery room after meeting discharge criteria. Home discharge instructions were given to the patient by the staff. The patient was reexamined prior to discharge. The patient will schedule a follow up in the clinic in 2-4 weeks.
[2023-01-31 10:23] VITALS: RESP 16
--- NOTE | 2023-01-31 10:28 | FL ---
EXAMINATION TYPE: FL guided pain mgmt statistic DATE OF EXAM: 01/31/2023 CLINICAL HISTORY: Low back pain. TECHNIQUE: Fluoroscopy. COMPARISON: None. FINDINGS: Fluoroscopic guidance was provided during pain relief procedure performed by Dr. Parra . A total of 2 seconds of fluoroscopic time was utilized during the procedure and 1 spot image is ac quired. Single image acquired shows needle localization at L4 level. IMPRESSION: As Above. Total DAP .[id number] mGy x m2
[2023-01-31 10:37] VITALS: BP 126/80; PULSE 86
== END 2023-01-31 10:56 | disposition home or self-care (01) ==
LOC: ORPAIN 09:18
PROVIDERS: ATTEND Specialist
DX: M51.16 Intervertebral disc disorders with radiculopathy, lumbar region (principal); M47.26 Other spondylosis with radiculopathy, lumbar region; Z88.0 Allergy status to penicillin
CPT/HCPCS: 62323; J2250; J1030; J3010; Q9966

== ENCOUNTER → 2023-02-20 | Outpatient (CLI) | payer MEDICARE, OTHER ==
--- NOTE | 2023-02-20 11:43 | P.PN ---
Subjective Progress Note Date: 02/20/23 This is a 63-year-old morbidly obese lady with history of mid and lower back pain. The patient had lumbar epidural steroid injection at the L4 5 level which gave her significant relief of pain. She uses the pain more in the middle back area. Patient denies new-onset weakness, bowel/bladder incontinence, or any other signs or symptoms of cauda equina syndrome. There are no signs of acute intoxication, and no indications of medication diversion or overuse. In addition to above, 13-point review of systems is also negative for chest pain, shortness of breath, changes in vision, changes in hearing, new onset weakness, abdominal pain, diarrhea, extreme fatigue, malaise, fever, skin townsend ges, homicidal or suicidal ideation, or bowel or bladder incontinence. Vital Signs: Reviewed in EMR Gen: AAOx3, NAD HEENT: PERRLA,hearing grossly normal Pulm: resp unlabored, patient got short of breath when she was climbing on the examination table Neck: supple, trachea midline Neuro exam of the lower extremities: Decreased but symmetrical knee reflexes and absent ankle reflex bilaterally, muscle strength 4 out of 5 bilaterally in the major muscle groups in the lower extremities Straight leg raising test: Negative bilaterally Jaswant's test: Range of motion of the lumbar spine: Facet loading test: Tenderness in the paravertebral musculature: Positive tenderness in the lumbar paravertebral musculature bilaterally Neuro: CN II-XII grossly intact, Imaging: Reviewed in EMR/chart Assessment: Lumbar spondylosis without myelopathy Lumbar DDD and Morbid obesity Insulin-dependent diabetes Plan: 1. Explanation: When patients on opioids, opioid and psychological risk scores were reviewed. Diagnoses, prognoses, and multiple treatment options including but not limited to physical therapy, interventional therapies, adjuvant medical therapies, narcotic medication therapies, and surgery were discussed with the patient and all questions were answered to the patient's satisfaction. 2. Opioid agreement:When patients are prescribed opoids through our clinic, opioid agreement is signed with the patient and the patient is warned not to use opioids while driving or before driving and not to combine opioids with benzodiazepines or alcohol. 3. Counseling: When patient is smoking or obese, the patient was counseled extensively on SMOKING CESSATION, BODY MASS INDEX, EXERCISE. Specifically, the patient was instructed regarding the importance of smoking cessation, obesity, and exercise in the context of both chronic pain and overall health. 4. Procedures: Lumbar epidural steroid injection #2 at the L4 5 level under fluoroscopic guidance 5. Consultations: None 6. Investigations: None 7. Medications: The patient receives [place] from her primary care physician 8. Disposition: Proceed with the above-mentioned procedure as soon as possible 9. Maps were reviewed and were appropriate. PQRS measures: 1-Patient's medications are documented in the chart. 2-Tobacco use is negative, counseling given 3-Patient has had a pneumococcal vaccine. 4-Advanced care planning discussed, patient unable to give 5-Opioid contract signed with the patient. 6-Pain positive, follow-up visit or procedure scheduled 7-Patient's blood pressure measured and documented . The patient will follow up with his primary care physician. 8-Patient's weight was measured. Patient instructed to follow up with PCP. 9-Patient WAS NOT identified as an unhealthy alcohol user.
[2023-02-20 11:56] VITALS: BP 145/84; PULSE 83; RESP 18; TEMP 97.8
== END ==
LOC: PNWHC3 09:28
PROVIDERS: ATTEND Anesthesiology
DX: M51.36 Other intervertebral disc degeneration, lumbar region (principal); E66.01 Morbid (severe) obesity due to excess calories; M47.816 Spondylosis without myelopathy or radiculopathy, lumbar region; Z79.4 Long term (current) use of insulin; E11.9 Type 2 diabetes mellitus without complications; Z88.0 Allergy status to penicillin; Z79.82 Long term (current) use of aspirin
CPT/HCPCS: 99211

== ENCOUNTER 2023-03-12 12:20 | Emergency (ER) | payer MEDICARE, OTHER ==
[2023-03-12 12:25] VITALS: TEMP 97.4
--- NOTE | 2023-03-12 13:09 | ED ---
General Adult HPI - General Chief complaint: Fall Stated complaint: fell hit head Time Seen by Provider: 03/12/23 12:30 Source: patient, RN notes reviewed Mode of arrival: ambulatory Limitations: no limitations - History of Present Illness Initial comments: 63-year-old female presents to the emergency department chief complaint of fall. Patient states that she tripped in the parking lot and hit her head on her walker. She reports pain to her right church which she is icing. She denies any other injury. She states that she is taking aspirin but no other blood thinners. Denies loss of consciousness. Denies headache, dizziness. Past medical history includes COPD, diabetes, hypertension. - Related Data Home Medications Medication Instructions Recorded Confirmed Budesonide-Formot 160-4.5 Mcg 2 puff INHALATION RT-BID 06/04/15 01/31/23 [Symbicort 160-4.5 Mcg Inhaler] Levothyroxine Sodium [Levoxyl] 100 mcg PO DAILY 06/04/15 01/31/23 Loratadine [Claritin] 10 mg PO DAILY 06/04/15 01/31/23 Mirtazapine [Remeron] 15 mg PO HS 06/04/15 01/31/23 Montelukast Sodium [Singulair] 10 mg PO HS 06/04/15 01/31/23 PARoxetine HCL [Paxil] 20 mg PO DAILY 06/04/15 01/31/23 Potassium Chloride ER [K-Dur 10] 10 meq PO DAILY 06/04/15 01/31/23 Topiramate [Topamax] 50 mg PO HS 06/04/15 01/31/23 rOPINIRole HCL [Requip] 1 mg PO DAILY 06/04/15 01/31/23 Omeprazole 40 mg PO BID 10/23/17 01/31/23 amLODIPine BESYLATE [Norvasc] 5 mg PO DAILY 10/23/17 01/31/23 atenoloL [Tenormin] 25 mg PO DAILY 10/23/17 01/31/23 Docusate [Colace] 100 mg PO BID 10/22/18 01/31/23 Furosemide [Lasix] 20 mg PO DAILY 10/22/18 01/31/23 buPROPion HCL [Wellbutrin SR] 150 mg PO BID 10/22/18 01/31/23 busPIRone HCl [Buspar] 10 mg PO DAILY 10/22/18 01/31/23 hydrALAZINE HCL [Apresoline] 50 mg PO BID 10/22/18 01/31/23 Dapagliflozin Propanediol [Farxiga] 5 mg PO DAILY 01/15/20 01/31/23 Diclofenac Sodium [Voltaren] 50 mg PO TID 01/15/20 01/31/23 Sucralfate [Carafate] 1 gm PO AC-TID 06/29/20 01/31/23 Aspirin [Adult Low Dose Aspirin EC] 81 mg PO DAILY 06/09/21 01/31/23 Albuterol Nebulized [Ventolin 2.5 mg INHALATION RT-QID 06/27/21 01/31/23 Nebulized] Cholecalciferol [Vitamin D3 (25 50 mcg PO DAILY 06/27/21 01/31/23 Mcg = 1000 Iu)] Fluticasone Nasal [place] [Flonase 1 spray EA NOSTRIL DAILY PRN 06/27/21 01/31/23 Nasal [place]] Meclizine [Antivert] 25 mg PO BID 06/27/21 01/31/23 Semaglutide [Ozempic] 1 mg SQ TU 06/27/21 01/31/23 Tiotropium [place] [Spiriva] 1 cap INHALATION RT-DAILY 06/27/21 01/31/23 Tolterodine ER [Detrol LA] 4 mg PO DAILY 06/27/21 01/31/23 Nitroglycerin Sl Tabs [Nitrostat] 0.4 mg SUBLINGUAL Q5M PRN 12/13/21 01/31/23 HYDROcodone/APAP 5-325MG [[place] 1 tab PO Q6HR PRN 01/31/23 01/31/23 5-325] Previous Rx's Medication Instructions Recorded Atorvastatin [Lipitor] 40 mg PO DAILY 90 Days #90 tab 06/29/21 Allergies Allergy/AdvReac Type Severity Reaction Status Date / Time Penicillins Allergy Rash/Hives Verified 03/12/23 12:25 Review of Systems ROS Statement: Those systems with pertinent positive or pertinent negative responses have been documented in the HPI. ROS Other: All systems not noted in ROS Statement are negative. Past Medical History Past Medical History: Asthma, COPD, Diabetes Mellitus, GERD/Reflux, Hyperlipidemia, Hypertension, Osteoarthritis (OA), Rheumatoid Arthritis (RA), Sleep Apnea/CPAP/BIPAP, Thyroid Disorder Additional Past Medical History / Comment(s): hypothyroidism, restless leg syndrome, migraine headaches (Neurontin Rx prescribed for these) , HIATAL HERNIA, HAS SPOT IN BACK OF HEAD FROM PIECE OF SKULL BEING REMOVED. 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 EGD, rt shoulder Past Anesthesia/Blood Transfusion Reactions: No Reported Reaction Past Psychological History: Anxiety, Depression Smoking Status: Never smoker Past Alcohol Use History: None Reported Past Drug Use History: None Reported - Past Family History Sister(s) Family Medical History: Deep Vein Thrombosis (DVT) Additional Family Medical History / Comment(s): SISTER HAD BLOOD CLOT IN LT ARM General Exam Limitations: no limitations General appearance: alert, in no apparent distress Head exam: Present: other (Scalp hematoma over the right) Eye exam: Present: normal appearance, PERRL, EOMI. Absent: scleral icterus, conjunctival injection, periorbital swelling ENT exam: Present: normal exam, mucous membranes moist Neck exam: Present: normal inspection. Absent: tenderness, meningismus, lymphadenopathy Respiratory exam: Present: normal lung sounds bilaterally. Absent: respiratory distress, wheezes, rales, rhonchi, stridor Cardiovascular Exam: Present: normal rhythm, tachycardia, normal heart sounds. Absent: systolic murmur, diastolic murmur, rubs, gallop, clicks Extremities exam: Present: normal inspection, full ROM, normal capillary refill, other (Lower extremity edema). Absent: tenderness, pedal edema, joint swelling, calf tenderness Back exam: Present: normal inspection Neurological exam: Present: alert, oriented X3, CN II-XII intact Psychiatric exam: Present: normal affect, normal mood Skin exam: Present: warm, dry, intact, normal color. Absent: rash Course Vital Signs 03/12/23 12:21 Temperature 97.4 F L Pulse Rate 110 H Respiratory 20 Rate Blood Pressure 131/75 O2 Sat by Pulse 96 Oximetry Medical Decision Making - Medical Decision Making Was pt. sent in by a medical professional or institution (GEOVANNI Worthington, LABORATORY MECHANICAL TECHNICIAN, urgent care, hospital, or long term...) When possible be specific @ -[No] Did you speak to anyone other than the patient for history (EMS, parent, family, police, friend...)? What history was obtained from this source @ -[No] Did you review nursing and triage notes (agree or disagree)? Why? @ -[I reviewed and agree with nursing and triage notes] Were old charts reviewed (outside hosp., previous admission, EMS record, old EKG, old radiological studies, urgent care reports/EKG's, long term records)? Report findings @ -[No old charts were reviewed] Differential Diagnosis (chest pain, altered mental status, abdominal pain women, abdominal pain men, vaginal bleeding, weakness, fever, dyspnea, syncope, headache, dizziness, GI bleed, back pain, seizure, CVA, palpatations, mental health, musculoskeletal)? @ -Fall, laceration, intracranial bleed, hematoma, this list is not all- inclusive EKG interpreted by me (3pts min.). @ -[None] X-rays interpreted by me (1pt min.). @ -[None done] CT interpreted by me (1pt min.). @ -[None done] U/S interpreted by me (1pt. min.). @ -[None done] What testing was considered but not performed or refused? (CT, X-rays, U/S, labs)? Why? @ -[None] What meds were considered but not given or refused? Why? @ -[None] Did you discuss the management of the patient with other professionals (professionals i.e. , GEOVANNI, LABORATORY MECHANICAL TECHNICIAN, lab, RT, psych nurse, social services analyst, fire sprinkler installer, teacher, trust officer, field nurse case manager)? Give summary @ -[No] Was smoking cessation discussed for >3mins.? @ -[No] Was critical care preformed (if so, how long)? @ -[No] Were there social determinants of health that impacted care today? How? (Homelessness, low income, unemployed, alcoholism, drug addiction, transportation, low edu. Level, literacy, decrease access to med. care, [facility], rehab)? @ -[No] Was there de-escalation of care discussed even if they declined (Discuss DNR or withdrawal of care, Hospice)? DNR status @ -[No] What co-morbidities impacted this encounter? (DM, HTN, Smoking, COPD, CAD, Cancer, CVA, ARF, Chemo, Hep., AIDS, mental health diagnosis, sleep apnea, morbid obesity)? @ -[None] Was patient admitted / discharged? Hospital course, mention meds given and route, prescriptions, significant lab abnormalities, going to OR and other pertinent info. @ -[Discharged. Patient presented to the emergency department with chief complaint of fall. Patient states that she hit her head on her walker when she tripped in the parking lot. Denies headache, dizziness. Denies loss consciousness. Patient has a hematoma on her right temporal region. CT brain and neck shows no acute process, no fractures. Patient discharged in stable condition. Case discussed with Dr. Ferraro] Undiagnosed new problem with uncertain prognosis? @ -[No] Drug Therapy requiring intensive monitoring for toxicity (Heparin, Nitro, Insulin, Cardizem)? @ -[No] Were any procedures done? @ -[No] Diagnosis/symptom? @ -[scalp hematoma ] Acute, or Chronic, or Acute on Chronic? @ -Acute Uncomplicated (without systemic symptoms) or Complicated (systemic symptoms)? @ -Uncomplicated Side effects of treatment? @ -[No] Exacerbation, Progression, or Severe Exacerbation? @ -[No] Poses a threat to life or bodily function? How? (Chest pain, [place], NH, pneumonia, PE, COPD, DKA, ARF, appy, cholecystitis, CVA, Diverticulitis, Homicidal, Suicidal, threat to staff... and all critical care pts) @ -[No] Disposition Clinical Impression: Fall Disposition: HOME SELF-CARE Condition: Stable Instructions (If sedation given, give patient instructions): Fall Prevention for Older Adults (ED) Additional Instructions: Please return to the Emergency Department if symptoms worsen or any other concerns. Is patient prescribed a controlled substance at d/c from ED?: No Referrals: Hang Young MD [Primary Care Provider] - 1-2 days Time of Disposition: 14:31
--- NOTE | 2023-03-12 14:16 | CT ---
EXAMINATION TYPE: CT brain sunshine mancera con DATE OF EXAM: 03/12/2023 COMPARISON: None HISTORY: 63-year-old female fall hit head along the right temporal region, pain. CT DLP: 1994 mGycm Automated exposure control for dose reduction was used. Technique: Examination of the head was done in axial plane without intravenous contrast. Coronal and sagittal reconstructions performed. CT of the cervical spine was obtained in axial plane without intravenous injection of contrast mater ial. Coronal and sagittal reformatted images were obtained from the axial views for evaluation of f ractures, spinal alignment and canal. FINDINGS: Head: Mild scalp contusion along the lateral right frontal convexity. No underlying calvarial fracture. Mil d calvarial artifacts are noted. Allowing for this limitation, no evidence for acute intracranial hemorrhage, acute ischemic change, m ass, mass effect, midline shift, or extra-axial fluid collection. No hydrocephalus. No effacement of cerebral sulci or basal subarachnoid cisterns. Blue-white matter differentiation is maintained. 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 Partially empty sella incidentally noted. Paranasal sinuses and mastoid air cells are well pneumatized. No calvarial fracture. There is anterior subluxation at the right TMJ. Cervical spine: No craniocervical junction anomaly, predental space widening, or prevertebral soft tissues following. Retropharyngeal course of the bilateral ICAs. Moderate anterior endplate spondylosis especially C4-C6 levels. Scattered facet and uncovertebral joint arthropathy especially mid to lower cervical spine. No acute fracture seen of the cervical spine. Variable mild bilateral neural foraminal stenosis. Moderate on the right at C5-C6. Sagittal and coronal reformatted images confirm above findings. COMBINED IMPRESSION: 1. Mild right temporal scalp contusion. No underlying acute intracranial abnormality seen. 2. Isolated anterior subluxation right TMJ. Correlate for any focal symptoms here as the left TMJ rem ains normally aligned. 3. Mild to moderate spondylotic changes cervical spine. No acute fracture or subluxation.
[2023-03-12] MEDS ORDERED: DIPH,PERTUS(ACELL)TETVAC-LF 0.5 ML VIAL IM ONE (14:25)
[2023-03-12 15:00] VITALS: BP 125/76; PULSE 90; RESP 16
== END 2023-03-12 15:00 | disposition home or self-care (01) ==
LOC: EC 12:20
DX: S00.03XA Contusion of scalp, initial encounter (principal); E11.9 Type 2 diabetes mellitus without complications; I10 Essential (primary) hypertension; E78.5 Hyperlipidemia, unspecified; E03.9 Hypothyroidism, unspecified; J44.9 Chronic obstructive pulmonary disease, unspecified; K21.9 Gastro-esophageal reflux disease without esophagitis; M06.9 Rheumatoid arthritis, unspecified; F32.A Depression, unspecified; F41.9 Anxiety disorder, unspecified; Z23 Encounter for immunization; Z79.51 Long term (current) use of inhaled steroids; Z79.890 Hormone replacement therapy; Z79.82 Long term (current) use of aspirin; Z79.84 Long term (current) use of oral hypoglycemic drugs; Z79.899 Other long term (current) drug therapy; Z88.0 Allergy status to penicillin; W01.198A Fall on same level from slipping, tripping and stumbling with subsequent striking against other object, initial encounter; Y92.481 Parking lot as the place of occurrence of the external cause
CPT/HCPCS: 70450; 72125; 90471; 90715; 99284